=== PATIENT | female | born 1990 | race Caucasian/White ===

== ENCOUNTER 2017-07-19 21:02 | Emergency (ER) | payer OTHER ==
[~2017-07-19] VITALS: Ht 160 cm; Wt 113.0 kg
[~2017-07-19 21:02] MED LIST: AMIT150T PO; ASPI325T4 PO; BUPR150T5 PO; DESV100T8 PO; LISD70CA PO; LURA1TAB2 PO; METR-163 PO; NORG1TAB23 PO; OMEP40CA41 PO; ONDA4TAB10 SL; PRAZ2CAP2 PO; VLT500 PO; VNTHFA/IN INH; ZYP10 PO
[2017-07-19 21:12] VITALS: TEMP 36.8; Ht 160 cm; Wt 113.0 kg
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
[2017-07-19] MEDS ORDERED: FLUC150T PO (22:38)
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
[2017-07-19 22:51] VITALS: BP 154/87; PULSE 82; O2SAT 98
== END 2017-07-19 22:52 | disposition home or self-care (01) ==
LOC: C.EDB 21:03 → C.EDD 22:52
DX: M54.2 Cervicalgia (principal); M79.621 Pain in right upper arm; M54.5 Low back pain; V49.59XA Passenger injured in collision with other motor vehicles in traffic accident, initial encounter; A04.72 Enterocolitis due to Clostridium difficile, not specified as recurrent; J45.909 Unspecified asthma, uncomplicated; K21.9 Gastro-esophageal reflux disease without esophagitis; Z79.82 Long term (current) use of aspirin; Z79.3 Long term (current) use of hormonal contraceptives; Z87.442 Personal history of urinary calculi; Z90.49 Acquired absence of other specified parts of digestive tract; Z83.3 Family history of diabetes mellitus; Z82.49 Family history of ischemic heart disease and other diseases of the circulatory system; Z80.9 Family history of malignant neoplasm, unspecified; Z83.79 Family history of other diseases of the digestive system; Z84.1 Family history of disorders of kidney and ureter

== ENCOUNTER 2017-09-22 19:14 | Emergency (ER) | payer OTHER ==
[~2017-09-22] VITALS: Ht 160 cm; Wt 114.2 kg
[2017-09-22 19:23] VITALS: TEMP 36.8; Ht 160 cm; Wt 114.2 kg
[2017-09-22] MEDS ORDERED: SODIUM CHLORIDE 0.9% 500ML 500 ML IV STA (21:25)
[2017-09-22 21:32] LABS: BASO % 0.4 %; BASO ABS # 0.03 K/uL (0-0.2); EOS % 2.9 %; EOS ABS # 0.25 K/uL (0-0.5); HEMATOCRIT 38.9 % (37-47); HEMOGLOBIN 12.7 g/dL (12.0-16.0); IG# 0.02 K/uL (0.00-0.02); LYMPH % 35.1 %; LYMPH ABS # 2.99 K/uL (1.2-3.4); MEAN CELL VOLUME 84.7 fL (80-100); MEAN CORPUSCULAR HEMOGLOBIN 27.7 pg (25-34); MEAN CORPUSCULAR HGB CONC 32.6 g/dl (32-36); MEAN PLATELET VOLUME 8.7 fL (7.4-10.4); MONO % 8.7 %; MONO ABS # 0.74 K/uL (0.11-0.59); NEUT % 52.7 %; NEUT ABS # 4.48 K/uL (1.4-6.5); PLATELET COUNT 366 K/uL (130-400); RED CELL DISTRIBUTION WIDTH CV 13.2 % (11.5-14.5); RED CELL DISTRIBUTION WIDTH SD 40.3 fL (36.4-46.3); WHITE BLOOD COUNT 8.51 K/uL (4.8-10.8)
[2017-09-22 21:48] LABS: CALCIUM 8.6 mg/dl (8.5-10.1); CREATININE 0.87 mg/dl (0.60-1.20); POTASSIUM 3.9 mmol/L (3.5-5.1)
[2017-09-22 21:51] LABS: TOTAL PROTEIN 7.4 gm/dl (6.4-8.2)
[2017-09-22] MEDS ORDERED: KETOROLAC TROMETHAMINE 30 MG/ML VIAL IV STA (22:16)
[2017-09-23 00:33] VITALS: BP 136/84; PULSE 98; O2SAT 98
--- NOTE | 2017-09-23 03:05 | EMERGENCY ROOM VISIT NOTE ---
History Report prepared by Loyd: J Luis Siegel Under the Supervision of: Dr. Brandon Ibrahim D.O. First contact with patient: 21:24 Chief Complaint: ABDOMINAL PAIN Stated Complaint: STOMACH PAIN, RIGHT SIDE BACK PAIN History of Present Illness The patient is a 26 year old female who presents to the Emergency Room with complaints of worsening diarrhea that started 3 days ago. She complains of abdominal pain and right back pain. She denies nausea and vomiting. She states that she got C. Diff at the end of June 2017 from her room mate and states that the consistency and color of her stool is similar but does not smell as bad. Source of History: patient Onset: 3 days ago Position: abdomen Timing: constant Associated Symptoms: + abdominal pain, + back pain (right ), + diarrhea, No nausea, No vomiting Review of Systems See HPI for pertinent positives & negatives. A total of 10 systems reviewed and were otherwise negative. Past Medical & Surgical Medical Problems: (1) Asthma (2) GERD (gastroesophageal reflux disease) (3) Kidney stone Surgical Problems: (1) S/P ACL repair (2) S/P cholecystectomy Family History Diabetes mellitus FH: HTN (hypertension) FH: cancer FH: gallbladder disease FH: lung disease Kidney stones No significant family history Social History Smoking Status: Never Smoker Alcohol Use: occasionally Housing Status: lives with friends Occupation Status: [employer] student Current/Historical Medications Scheduled Amitriptyline Hcl (Amitriptyline Hcl), 75-150 MG PO DAILY Bupropion Hcl (Bupropion Hcl Xl), 150 MG PO DAILY Desvenlafaxine Succinate (Desvenlafaxine ER), 100 MG PO QAM Lisdexamfetamine Dimesylate (Vyvanse), 70 MG PO QAM Lurasidone Hcl (Latuda), 60 MG PO QPM Norgestimate-Ethinyl Estradiol (Tri-Estarylla), 1 TAB PO UD Omeprazole (Prilosec), 40 MG PO DAILY Prazosin Hcl (Prazosin), 2 MG PO HS Scheduled PRN Albuterol Hfa (Ventolin Hfa), 2 PUFFS INH Q6H PRN for SOB/Wheezing Valacyclovir HCl (Valacyclovir HCl), 500 MG PO TID PRN for Recurrent Episode Allergies Coded Allergies: No Known Allergies (Unverified , 09/22/17) Physical Exam Vital Signs Date Time Temp Pulse Resp B/P (MAP) Pulse Ox O2 Delivery O2 Flow Rate FiO2 09/23/17 00:33 98 20 136/84 98 Room Air 09/22/17 23:11 99 20 128/77 99 Room Air 09/22/17 21:34 84 20 135/100 99 Room Air 09/22/17 19:23 36.8 98 18 129/88 97 Room Air Physical Exam CONSTITUTIONAL/VITAL SIGNS: Reviewed / noted above. GENERAL: Non-toxic in appearance. INTEGUMENTARY: Warm, dry, and [place]. HEAD: Normocephalic. EYES: without scleral icterus or trauma. ENT/OROPHARYNX: clear and moist. LYMPHADENOPATHY/NECK: Is supple without lymphadenopathy or meningismus. RESPIRATORY: Lungs clear and equal. CARDIOVASCULAR: Regular rate and rhythm. GI/ABDOMEN: Soft and nontender. No organomegaly or pulsatile mass. No rebound or guarding. Normal bowel sounds. EXTREMITIES: Warm and well perfused. BACK: No CVA tenderness. NEUROLOGICAL: Intact without focal deficits. PSYCHIATRIC: normal affect. MUSCULOSKELETAL: Normally developed with good muscle tone. Medical Decision & Procedures Laboratory Results 09/22/17 21:15 Red Blood Count 4.59, Mean Corpuscular Volume 84.7, Mean Corpuscular Hemoglobin 27.7, Mean Corpuscular Hemoglobin Concent 32.6, Mean Platelet Volume 8.7, Neutrophils (%) (Auto) 52.7, Lymphocytes (%) (Auto) 35.1, Monocytes (%) (Auto) 8.7, Eosinophils (%) (Auto) 2.9, Basophils (%) (Auto) 0.4, Neutrophils # (Auto) 4.48, Lymphocytes # (Auto) 2.99, Monocytes # (Auto) 0.74, Eosinophils # (Auto) 0.25, Basophils # (Auto) 0.03 09/22/17 21:15 Test 09/22/17 21:15 09/22/17 22:10 White Blood Count 8.51 K/uL (4.8-10.8) Red Blood Count 4.59 M/uL (4.2-5.4) Hemoglobin 12.7 g/dL (12.0-16.0) Hematocrit 38.9 % (37-47) Mean Corpuscular Volume 84.7 fL (80-100) Mean Corpuscular Hemoglobin 27.7 pg (25-34) Mean Corpuscular Hemoglobin Concent 32.6 g/dl (32-36) Platelet Count 366 K/uL (130-400) Mean Platelet Volume 8.7 fL (7.4-10.4) Neutrophils (%) (Auto) 52.7 % Lymphocytes (%) (Auto) 35.1 % Monocytes (%) (Auto) 8.7 % Eosinophils (%) (Auto) 2.9 % Basophils (%) (Auto) 0.4 % Neutrophils # (Auto) 4.48 K/uL (1.4-6.5) Lymphocytes # (Auto) 2.99 K/uL (1.2-3.4) Monocytes # (Auto) 0.74 K/uL (0.11-0.59) Eosinophils # (Auto) 0.25 K/uL (0-0.5) Basophils # (Auto) 0.03 K/uL (0-0.2) RDW Standard Deviation 40.3 fL (36.4-46.3) RDW Coefficient of Variation 13.2 % (11.5-14.5) Immature Granulocyte % (Auto) 0.2 % Immature Granulocyte # (Auto) 0.02 K/uL (0.00-0.02) Anion Gap 9.0 mmol/L (3-11) Est Creatinine Clear Calc Drug Dose 121.4 ml/min Estimated GFR () 108.1 Estimated GFR (Non- 93.2 BUN/Creatinine Ratio 13.8 (10-20) Calcium Level 8.6 mg/dl (8.5-10.1) Total Bilirubin 0.2 mg/dl (0.2-1) Aspartate Amino Transf (AST/SGOT) 15 U/L (15-37) Alanine Aminotransferase (ALT/SGPT) 30 U/L (12-78) Alkaline Phosphatase 36 U/L (45-117) Total Protein 7.4 gm/dl (6.4-8.2) Albumin 3.0 gm/dl (3.4-5.0) Globulin 4.4 gm/dl (2.5-4.0) Albumin/Globulin Ratio 0.7 (0.9-2) Lipase 92 U/L (73-393) Urine Color DK YELLOW Urine Appearance CLOUDY (CLEAR) Urine pH 6.0 (4.5-7.5) Urine Specific [place] 1.027 (1.000-1.030) Urine Protein TRACE (NEG) Urine Glucose (UA) NEG (NEG) Urine Ketones TRACE (NEG) Urine Occult Blood 3+ (NEG) Urine Nitrite NEG (NEG) Urine Bilirubin NEG (NEG) Urine Urobilinogen NEG (NEG) Urine Leukocyte Esterase TRACE (NEG) Urine WBC (Auto) 1-5 /hpf (0-5) Urine RBC (Auto) >30 /hpf (0-4) Urine Hyaline Casts (Auto) 1-5 /lpf (0-5) Urine Epithelial Cells (Auto) >30 /lpf (0-5) Urine Bacteria (Auto) NEG (NEG) Urine Test NEG (NEG) Date/Time Source Procedure Growth Status 09/22/17 22:40 Stool C.difficile Toxin B Gene (PCR) - Final No C. difficile toxin B gene detected Complete Laboratory results as stated above per my review. Medications Administered Medications (Trade) Dose Ordered Sig/Perry Route Start Time Stop Time Status Last Admin Dose Admin Sodium Chloride 500 ml @ 999 mls/hr Q31M STAT IV 09/22/17 21:25 09/22/17 21:55 DC 09/22/17 21:25 999 MLS/HR Ketorolac Tromethamine (Toradol Inj) 30 mg NOW STAT IV 09/22/17 22:16 09/22/17 22:17 DC 09/22/17 22:26 30 MG ED Course 4: Previous medical records were reviewed. The patient was evaluated in room C12B. A complete history and physical examination was performed. 5: Sodium Chloride 500 ml @ 999 mls/hr IV. 6: Toradol Inj 30 mg IV. 0145: On reevaluation, the patient is doing well. I discussed the results and findings with the patient. She verbalized agreement of the treatment plan. Patient was discharged home. Medical Decision Differential considered: pancreatitis, hepatitis, or acute cholecystitis, AAA, UTI, pyelonephritis, kidney stones, appendicitis, diverticulitis, shingles, bowel obstruction mesenteric ischemia, intussusception,hernia, ovarian torsion, ruptured ovarian cyst,ectopic , , and C.Diff. This is a 26-year-old female who presents to the ED with a chief complaint of diarrhea with a history of C. difficile. She also reports some abdominal discomfort and some flank pain. The patient's exam and vital signs are noted above. Her vital signs are stable. She is afebrile. Normal exam. CBC and complete metabolic panel were unremarkable. Urine revealed 3+ blood. test was negative. C. difficile test was negative. The patient was reassessed. She was treated with IV Toradol. On reevaluation, she is more comfortable. She is feeling better. She is felt to be stable for discharge. Medication Reconcilliation Current Medication List: was personally reviewed by me Blood Pressure Screening Patient's blood pressure: Normal blood pressure Blood pressure disposition: Did not require urgent referral Impression Primary Impression: Diarrhea Scribe Attestation The scribe's documentation has been prepared under my direction and personally reviewed by me in its entirety. I confirm that the note above accurately reflects all work, treatment, procedures, and medical decision making performed by me. Departure Information Dispostion Home / Self-Care Referrals Johnna Hancock M.D. (PCP) Patient Instructions My [facility]
== END 2017-09-23 00:40 | disposition home or self-care (01) ==
LOC: C.EDB 19:17 → C.EDC 09-23 00:40
DX: R19.7 Diarrhea, unspecified (principal); K21.9 Gastro-esophageal reflux disease without esophagitis; J45.909 Unspecified asthma, uncomplicated; Z79.3 Long term (current) use of hormonal contraceptives

== ENCOUNTER 2018-03-16 11:18 | Emergency (ER) | payer OTHER ==
[~2018-03-16] VITALS: Ht 160 cm; Wt 113.4 kg
[~2018-03-16 11:18] MED LIST changes: -AMIT150T PO; +AMT50 PO; -ASPI325T4 PO; -BUPR150T5 PO; +BUSP15TA70 PO; -METR-163 PO; +OXYC-737 PO; -ZYP10 PO
[2018-03-16 11:22] VITALS: TEMP 36.8; Ht 160 cm; Wt 113.4 kg
[2018-03-16] MEDS ORDERED: SODIUM CHLORIDE 0.9% 1000ML 1,000 ML IV STA (11:23)
[2018-03-16] MEDS ORDERED: ONDANSETRON INJ 2 MG/ML 2 ML VIAL IV STA ×2 (11:23→15:06)
[2018-03-16] MEDS ORDERED: MoRPHine SULFATE 4 MG/ML 1 ML CARP\\VIAL IV STA (11:23)
[2018-03-16] MEDS ORDERED: CLON0.1T12 PO (12:09)
[2018-03-16 12:31] LABS: BASO % 0.2 %; EOS % 1.5 %; HEMATOCRIT 38.7 % (37-47); HEMOGLOBIN 12.6 g/dL (12.0-16.0); MEAN CELL VOLUME 83.4 fL (80-100); MEAN CORPUSCULAR HEMOGLOBIN 27.2 pg (25-34); MEAN CORPUSCULAR HGB CONC 32.6 g/dl (32-36); MEAN PLATELET VOLUME 8.8 fL (7.4-10.4); MONO % 10.1 %; NEUT % 67.1 %; PLATELET COUNT 301 K/uL (130-400); RED CELL DISTRIBUTION WIDTH CV 13.5 % (11.5-14.5); RED CELL DISTRIBUTION WIDTH SD 41.2 fL (36.4-46.3); WHITE BLOOD COUNT 8.19 K/uL (4.8-10.8)
[2018-03-16 12:32] LABS: BASO ABS # 0.02 K/uL (0-0.2); EOS ABS # 0.12 K/uL (0-0.5); IG# 0.01 K/uL (0.00-0.02); LYMPH ABS # 1.72 K/uL (1.2-3.4); MONO ABS # 0.83 K/uL (0.11-0.59); NEUT ABS # 5.49 K/uL (1.4-6.5)
[2018-03-16 12:52] LABS: ALBUMIN 3.1 gm/dl (3.4-5.0); CALCIUM 8.3 mg/dl (8.5-10.1); CREATININE 1.27 mg/dl (0.60-1.20); POTASSIUM 4.1 mmol/L (3.5-5.1); TOTAL PROTEIN 7.4 gm/dl (6.4-8.2)
--- NOTE | 2018-03-16 12:53 | DIAGNOSTIC IMAGING REPORT ---
KUB CLINICAL HISTORY: EVALUATE FOR OBSTRUCTION/STONE pain. Nephrocalcinosis. COMPARISON STUDY: 03/04/2018 FINDINGS: The soft tissues, psoas shadows, renal outlines and intestinal gas pattern appear normal. There is no evidence for bowel obstruction. No abnormal abdominal calcifications are seen. IMPRESSION: Normal study. The above report was generated using voice recognition software. It may contain grammatical, syntax or spelling errors. Electronically signed by: Jensen Jackson M.D. 03/16/2018 12:51 PM Dictated Date/Time: 03/16/2018 12:49 PM
--- NOTE | 2018-03-16 13:36 | DIAGNOSTIC IMAGING REPORT ---
(LEAH/BLAD)RETROPERITON COMP HISTORY: Pain R renal colic COMPARISON: None. FINDINGS: Right kidney: Maximum dimension 10 cm. Mild right renal hydronephrosis. Normal corticomedullary differentiation and cortical thickness. Left kidney: Maximum dimension 10.4 cm. No evidence for hydronephrosis. Normal corticomedullary differentiation and cortical thickness. Bladder: No bladder wall thickening. The bilateral ureteral jets were identified. IMPRESSION: Mild right renal hydronephrosis. Otherwise negative study. The above report was generated using voice recognition software. It may contain grammatical, syntax or spelling errors. Electronically signed by: Jensen Jackson M.D. 03/16/2018 1:34 PM Dictated Date/Time: 03/16/2018 1:32 PM
[2018-03-16] MEDS ORDERED: HYDROmorphone INJ 0.5 MG/0.5 ML SYR IV STA ×2 (13:39→15:06)
[2018-03-16] MEDS ORDERED: OXYC-90 PO (15:05)
[2018-03-16 15:19] VITALS: BP 145/95; PULSE 91; O2SAT 99
--- NOTE | 2018-03-16 16:40 | EMERGENCY ROOM VISIT NOTE ---
History First contact with patient: 11:22 Chief Complaint: URINARY SYMPTOMS Stated Complaint: RIGHT BACK PAIN, PAINFUL URINATION Nursing Triage Summary: pt reports she has appt with urology on . was seen here on the for kidney stone has painful urination , feels nauseated and gagging. no vomiting. called pcp told to come to ed History of Present Illness The patient is a 27 year old female who presents to the Emergency Room with complaints of recurrent right flank and back pain. The patient reports that she has been dealing with pain secondary to a right-sided ureteral stone that was diagnosed in our emergency department 12 days ago. The patient reports that she does have a prior history of kidney stones, with her last passed stone in approximately 2011. The patient reports that she actually did not have any pain this past Friday or Friday. She started to redevelop pain again on Friday. She reports nausea without vomiting. She has not noticed any blood in her urine or difficulty with urination. She denies fevers or chills, and rates her discomfort a 10 out of 10 on my exam. The patient reports that she did call the [facility] urology office and has an appointment scheduled for next month as a could not get her in sooner. The patient has not been seen at their office in the past. Review of Systems HEENT: Denies dizziness, visual problems, hearing loss, tinnitus. Denies difficulty swallowing or oral lesions. PULMONARY: Denies cough, shortness of breath, sputum production or hemoptysis. CARDIOVASCULAR: Denies chest pain, palpitations, dyspnea on exertion, orthopnea or peripheral edema. GASTROINTESTINAL: Denies diarrhea, constipation or anterior abdominal pain. GENITOURINARY: The patient reports mild dysuria and increased frequency. Denies urgency or nocturia. NEUROLOGIC: Denies history of epilepsy, CVA, TIA or chronic headaches. MUSCULOSKELETAL: Denies history of joint tenderness/swelling. SKIN: Denies rashes or lesions. PSYCHIATRIC: Denies history of depression or mental illness. ENDOCRINE: Denies history of diabetes or thyroid disorders. Past Medical/Surgical History Medical Problems: (1) Asthma (2) GERD (gastroesophageal reflux disease) (3) Kidney stone Surgical Problems: (1) S/P ACL repair (2) S/P cholecystectomy Family History Diabetes mellitus FH: HTN (hypertension) FH: cancer FH: gallbladder disease FH: lung disease Kidney stones No significant family history Social History Smoking Status: Never Smoker Alcohol Use: occasionally Housing Status: lives with friends Occupation Status: [employer] student Current/Historical Medications Scheduled Amitriptyline Hcl (Elavil), 100 MG PO DAILY Buspirone Hcl (Buspar), 15 MG PO DIRECTED Clonidine Hcl (Catapres), 0.1 MG PO HS Desvenlafaxine Succinate (Desvenlafaxine ER), 100 MG PO QAM Lisdexamfetamine Dimesylate (Vyvanse), 70 MG PO QAM Lurasidone Hcl (Latuda), 60 MG PO QPM Norgestimate-Ethinyl Estradiol (Tri-Estarylla), 1 TAB PO UD Omeprazole (Prilosec), 40 MG PO DAILY Ondasetron Odt (Zofran Odt), 4 MG SL Q6H Scheduled PRN Albuterol Hfa (Ventolin Hfa), 2 PUFFS INH Q6H PRN for SOB/Wheezing Oxycodone Immediate Rel Tab (Roxicodone Ir), 1-2 TAB PO Q4H PRN for Severe Pain Oxycodone Ir (Roxicodone Ir), 1 TAB PO Q4H PRN for Pain Valacyclovir HCl (Valacyclovir HCl), 500 MG PO TID PRN for Recurrent Episode Physical Exam Vital Signs Date Time Temp Pulse Resp B/P (MAP) Pulse Ox O2 Delivery O2 Flow Rate FiO2 03/16/18 15:19 91 16 145/95 99 Room Air 03/16/18 11:22 36.8 93 18 147/100 100 Room Air Physical Exam CONSTITUTIONAL: Healthy and well nourished. Alert and oriented X 3 with positive affect. Patient appears in moderate discomfort from pain. HEENT: Normocephalic, atraumatic. Pupils equal, round and reactive. No scleral icterus or conjunctival injection/pallor. NECK: Full active range of motion without discomfort. RESPIRATORY: Clear to auscultation bilaterally with no wheezing, crackles, rhonchi or stridor. CARDIOVASCULAR: Regular rate and rhythm with no murmurs, rubs or gallops. GASTROINTESTINAL: Bowel sounds present in all quadrants. Abdomen is soft and nontender to palpation. Negative McBurney's point tenderness. Negative Abel sign. Negative CVA tenderness. No abdominal rigidity, guarding or rebound. MUSCULOSKELETAL: Full range of motion of all joints without discomfort. No tenderness to palpation through the thoracic or lumbar paraspinous muscles or SI joints. INTEGUMENTARY: No rash or other significant dermatologic conditions noted. HEMATOLOGIC: No ecchymosis or petechiae. NEUROLOGIC: No focal neurologic deficits noted. Medical Decision & Procedures ER Provider Diagnostic Interpretation: My interpretation of the KUB does not show any obvious ureteral calculi, free air or obstructive findings. Radiologist report is as follows: KUB CLINICAL HISTORY: EVALUATE FOR OBSTRUCTION/STONE pain. Nephrocalcinosis. COMPARISON STUDY: 03/04/2018 FINDINGS: The soft tissues, psoas shadows, renal outlines and intestinal gas pattern appear normal. There is no evidence for bowel obstruction. No abnormal abdominal calcifications are seen. IMPRESSION: Normal study. Retroperitoneal ultrasound shows a mild hydronephrosis without obvious bladder wall thickening. Bilateral ureteral jets are identified. Radiologist report is as follows: (LEAH/BLAD)RETROPERITON COMP HISTORY: Pain R renal colic COMPARISON: None. FINDINGS: Right kidney: Maximum dimension 10 cm. Mild right renal hydronephrosis. Normal corticomedullary differentiation and cortical thickness. Left kidney: Maximum dimension 10.4 cm. No evidence for hydronephrosis. Normal corticomedullary differentiation and cortical thickness. Bladder: No bladder wall thickening. The bilateral ureteral jets were identified. IMPRESSION: Mild right renal hydronephrosis. Otherwise negative study. Laboratory Results 03/16/18 12:00 Red Blood Count 4.64, Mean Corpuscular Volume 83.4, Mean Corpuscular Hemoglobin 27.2, Mean Corpuscular Hemoglobin Concent 32.6, Mean Platelet Volume 8.8, Neutrophils (%) (Auto) 67.1, Lymphocytes (%) (Auto) 21.0, Monocytes (%) (Auto) 10.1, Eosinophils (%) (Auto) 1.5, Basophils (%) (Auto) 0.2, Neutrophils # (Auto ) 5.49, Lymphocytes # (Auto) 1.72, Monocytes # (Auto) 0.83, Eosinophils # (Auto ) 0.12, Basophils # (Auto) 0.02 03/16/18 12:00 Test 03/16/18 11:54 03/16/18 12:00 Urine Color YELLOW Urine Appearance CLEAR (CLEAR) Urine pH 5.5 (4.5-7.5) Urine Specific [place] 1.029 (1.000-1.030) Urine Protein NEG (NEG) Urine Glucose (UA) NEG (NEG) Urine Ketones NEG (NEG) Urine Occult Blood NEG (NEG) Urine Nitrite NEG (NEG) Urine Bilirubin NEG (NEG) Urine Urobilinogen NEG (NEG) Urine Leukocyte Esterase NEG (NEG) Urine Test NEG (NEG) White Blood Count 8.19 K/uL (4.8-10.8) Red Blood Count 4.64 M/uL (4.2-5.4) Hemoglobin 12.6 g/dL (12.0-16.0) Hematocrit 38.7 % (37-47) Mean Corpuscular Volume 83.4 fL (80-100) Mean Corpuscular Hemoglobin 27.2 pg (25-34) Mean Corpuscular Hemoglobin Concent 32.6 g/dl (32-36) Platelet Count 301 K/uL (130-400) Mean Platelet Volume 8.8 fL (7.4-10.4) Neutrophils (%) (Auto) 67.1 % Lymphocytes (%) (Auto) 21.0 % Monocytes (%) (Auto) 10.1 % Eosinophils (%) (Auto) 1.5 % Basophils (%) (Auto) 0.2 % Neutrophils # (Auto) 5.49 K/uL (1.4-6.5) Lymphocytes # (Auto) 1.72 K/uL (1.2-3.4) Monocytes # (Auto) 0.83 K/uL (0.11-0.59) Eosinophils # (Auto) 0.12 K/uL (0-0.5) Basophils # (Auto) 0.02 K/uL (0-0.2) RDW Standard Deviation 41.2 fL (36.4-46.3) RDW Coefficient of Variation 13.5 % (11.5-14.5) Immature Granulocyte % (Auto) 0.1 % Immature Granulocyte # (Auto) 0.01 K/uL (0.00-0.02) Anion Gap 5.0 mmol/L (3-11) Est Creatinine Clear Calc Drug Dose 82.1 ml/min Estimated GFR () 67.9 Estimated GFR (Non- 58.6 BUN/Creatinine Ratio 12.0 (10-20) Calcium Level 8.3 mg/dl (8.5-10.1) Total Bilirubin 0.3 mg/dl (0.2-1) Aspartate Amino Transf (AST/SGOT) 25 U/L (15-37) Alanine Aminotransferase (ALT/SGPT) 50 U/L (12-78) Alkaline Phosphatase 30 U/L (45-117) Total Protein 7.4 gm/dl (6.4-8.2) Albumin 3.1 gm/dl (3.4-5.0) Globulin 4.3 gm/dl (2.5-4.0) Albumin/Globulin Ratio 0.7 (0.9-2) Lipase 63 U/L (73-393) Medications Administered Medications (Trade) Dose Ordered Sig/Perry Route Start Time Stop Time Status Last Admin Dose Admin Sodium Chloride 1,000 ml @ 999 mls/hr Q1H1M STAT IV 03/16/18 11:23 03/16/18 12:23 DC 03/16/18 11:46 999 MLS/HR Morphine Sulfate (MoRPHine SULFATE INJ) 4 mg NOW STAT IV 03/16/18 11:23 03/16/18 11:25 DC 03/16/18 11:46 4 MG Ondansetron HCl (Zofran Inj) 4 mg NOW STAT IV 03/16/18 11:23 03/16/18 11:25 DC 03/16/18 11:46 4 MG Hydromorphone HCl (Dilaudid Inj) 0.5 mg NOW STAT IV 03/16/18 13:39 03/16/18 13:40 DC 03/16/18 13:39 0.5 MG Hydromorphone HCl (Dilaudid Inj) 0.5 mg NOW STAT IV 03/16/18 15:06 03/16/18 15:07 DC 03/16/18 15:06 0.5 MG Ondansetron HCl (Zofran Inj) 4 mg NOW STAT IV 03/16/18 15:06 03/16/18 15:07 DC 03/16/18 15:06 4 MG Procedure 1. IV hydration: The patient was administered a normal saline 1 L bolus 2. IV mag 30 mg and Zofran 4 mg IVP. The patient did require an additional dose of Dilaudid 0.5 mg IVP 2, as well as another dose of Zofran 4 mg IVP prior to discharge. ED Course Patient history and physical exam were performed. Nurse's notes were reviewed. Vital signs were reviewed, showing an elevated blood pressure 147/100. Patient appears in moderate severe discomfort. I also reviewed documentation from the patient's last 2 ED visits, showing a 2 mm right distal ureteral calculus, approximately 1.5 cm above the UVJ. Her last laboratory results were also normal with a normal creatinine. IV access was established, and labs were drawn. The patient was hydrated with normal saline, and administered IV analgesics and an discussed in the previous Procedure section. Review of labs does show a bump to creatinine at 1.27, otherwise remaining labs, including CBC, LFTs, lipase and urinalysis are normal. KUB was unable to visualize the stone, and ultrasound shows a mild persistent hydronephrosis. The case was also discussed with Dr. Bains, ED attending physician, who agrees with urology consultation. I initially contacted and spoke with Dr. 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 I did explain that the patient already has an established appointment with her office. At this point, I then discussed the case further with DAVIN Malin who was able to establish an appointment for the patient tomorrow at [address] Noe. The patient was instructed to return to the emergency department for any uncontrollable pain, vomiting or developing fever. Otherwise she will keep her appointment tomorrow to discuss further management. The patient reports that she still has enough Zofran at home for nausea. She was provided an additional prescription for OxyIR 5 mg as needed for breakthrough pain. No drinking alcohol or driving while taking OxyIR. The patient was happy with plan of care, voiced understanding of all discharge instructions, and denied any pain at the time of discharge. Medical Decision Patient presents to the emergency department with complaint of persistent right flank pain secondary to a right ureteral calculus that has been previously visualized on CT scan. The patient does have a slight bump in her creatinine today, otherwise does not show any evidence for UTI. She is also afebrile without leukocytosis. I was able to control the patient's pain while in the emergency department. She was instructed to return to the emergency department , however, for any uncontrollable pain, developing fever or persistent vomiting. She does not appear to have infection at this time. I do not suspect appendicitis, bowel obstruction or surgical abdomen. The patient is status post cholecystectomy. [facility] Drug Monitoring Program Search Results: patient reviewed within database, no issues identified Medication Reconcilliation Current Medication List: was personally reviewed by me Blood Pressure Screening Patient's blood pressure: Elevated blood pressure Blood pressure disposition: Elevated BP felt to be situational Impression Primary Impression: Renal colic on right side Additional Impression: Right ureteral calculus Departure Information Dispostion Home / Self-Care Condition GOOD Prescriptions Oxycodone Ir (Roxicodone Ir) 5 Mg Tab 1 TAB PO Q4H Y for Pain, #18 TAB For Initial Treatment Prov: Magen Calvin PA 03/16/18 Referrals Johnna Hancock M.D. (PCP) Danis Noe II., DO Friday03/17/18 at 2:00 p.m. Forms HOME CARE DOCUMENTATION FORM, IMPORTANT VISIT INFORMATION Patient Instructions My [facility] Additional Instructions You have an appointment scheduled on 03/17/18 at [address] Noe. Continue with your oxycodone as needed for pain. Zofran as needed for nausea. Return to the emergency department for any uncontrollable pain, persistent vomiting or developing fever. Problem Qualifiers
[2018-03-18] MEDS ORDERED: OXYC-90 PO (11:43)
[2018-03-18] MEDS ORDERED: ONDA4TAB46 SL (11:43)
[2018-03-18] MEDS ORDERED: BUPR-79 PO (11:43)
[2018-03-23] MEDS ORDERED: TAMS0.4C38 PO (07:53)
[2018-03-23] MEDS ORDERED: PHEN-775 PO (07:53)
[2018-03-23] MEDS ORDERED: CIPR-255 PO (07:53)
[2018-03-23] MEDS ORDERED: OXYC7.5T65 PO (07:53)
== END 2018-03-16 15:44 | disposition home or self-care (01) ==
LOC: C.EDB 11:19 → C.EDC 15:44
DX: N23 Unspecified renal colic (principal); N20.1 Calculus of ureter; R11.0 Nausea; Z90.49 Acquired absence of other specified parts of digestive tract; J45.909 Unspecified asthma, uncomplicated; K21.9 Gastro-esophageal reflux disease without esophagitis; Z79.899 Other long term (current) drug therapy; Z79.3 Long term (current) use of hormonal contraceptives

== ENCOUNTER 2018-03-23 05:26 | Day surgery (SDC) | payer OTHER ==
[2018-03-18 11:44] VITALS: BMI 45.0
[~2018-03-23] VITALS: Ht 160 cm; Wt 115.9 kg
[~2018-03-23 05:26] MED LIST changes: +BUPR-79 PO; +CLON0.1T12 PO; -ONDA4TAB10 SL; +ONDA4TAB46 SL; -OXYC-737 PO; +OXYC-90 PO; -PRAZ2CAP2 PO
[2018-03-23] MEDS ORDERED: LACTATED RINGER'S 1000ML 1,000 ML IV SCH (06:00)
[2018-03-23] MEDS ORDERED: CIPROFLOXACIN / D5W 400 MG IV SCH (06:00)
[2018-03-23 06:17] VITALS: BP 115/70; PULSE 92; TEMP 36.6; O2SAT 100; Ht 160 cm; Wt 115.9 kg
[2018-03-23] MEDS ORDERED: DEXAMETHASONE SOD INJ 4 MG/ML VIAL ONE (07:07)
[2018-03-23] MEDS ORDERED: FENTANYL CITRATE INJ 50 MCG/1 ML 2 ML VIAL ONE (07:07)
[2018-03-23] MEDS ORDERED: MIDAZOLAM HCL 1 MG/ML 2ML VIAL ONE (07:07)
[2018-03-23] MEDS ORDERED: LIDOCAINE HCL 2% 2 ML VIAL (20MG/ML) ONE (07:07)
[2018-03-23] MEDS ORDERED: ONDANSETRON INJ 2 MG/ML 2 ML VIAL ONE (07:07)
[2018-03-23] MEDS ORDERED: PROPOFOL IV EMULSION 10 MG/ML 20 ML VIAL ONE ×2 (07:07→08:06)
[2018-03-23] MEDS ORDERED: SCOPOLAMINE 1.5 MG TDSY TD ONE (07:14)
--- NOTE | 2018-03-23 07:41 | History & Physical Bridge Note ---
H&P Re-Evaluation Bridge Note: I have examined the patient, reviewed the History & Physical and in the interval since the performance of the History & Physical I have noted the following changes of clinical significance: No changes noted
[2018-03-23] MEDS ORDERED: TAMS0.4C38 PO (07:53)
[2018-03-23] MEDS ORDERED: CIPR-255 PO (07:53)
[2018-03-23] MEDS ORDERED: PHEN-775 PO (07:53)
[2018-03-23] MEDS ORDERED: OXYC7.5T65 PO (07:53)
--- NOTE | 2018-03-23 07:55 | Discharge Instructions ---
Discharge Instructions Date of Service Mar 23, 2018. Admission Reason for Admission: STONE Discharge Discharge Diagnosis / Problem: Stones Discharge Goals Goal(s): Decrease discomfort, Improve function Activity Recommendations Activity Limitations: resume your previous activity Lifting Limitations: gradually increase as tolerated Exercise/Sports Limitations: gradually increase as tolerated . Instructions / Follow-Up Instructions / Follow-Up May have blood in urine. May have pelvic discomfort. Call if any fevers or chills. Current Hospital Diet Patient's current hospital diet: Discharge Diet Recommended Diet: Regular Diet Procedures Procedures Performed: Cystoscopy and Right Urteroscopy Pending Studies Studies pending at discharge: no Medical Emergencies . Who to Call and When: Medical Emergencies: If at any time you feel your situation is an emergency, please call 911 immediately. . Non-Emergent Contact Non-Emergency issues call your: Primary Care Provider, Urologist Call Non-Emergent contact if: you have a fever, temperature is above 101, temperature is above 101.5, your pain is not controlled, your pain is worsening . . "Provider Documentation" section prepared by Danis Noe. .
[2018-03-23] MEDS ORDERED: FENTANYL CITRATE INJ 50 MCG/1 ML 2 ML VIAL IV PRN (08:00)
[2018-03-23] MEDS ORDERED: ONDANSETRON INJ 2 MG/ML 2 ML VIAL IV PRN (08:00)
[2018-03-23] MEDS ORDERED: ALBUTEROL 0.083% NEBU SOLN 3 ML VIAL INH PRN (08:00)
[2018-03-23] MEDS ORDERED: OXYCODONE/ACETAMINOPHEN 7.5-325 TAB PO PRN (08:00)
[2018-03-23] MEDS ORDERED: ATROPINE SULFATE 0.1 MG/ML 5ML SYR IV PRN (08:00)
[2018-03-23] MEDS ORDERED: CONRAY 60% 50 ML VIAL ONE (08:03)
[2018-03-23] MEDS ORDERED: Cysto-Conray II 17.2% 250ML BOTTLE ONE (08:06)
--- NOTE | 2018-03-23 08:34 | [facility] Operative Report ---
Operative Report Operative Date Mar 23, 2018. Pre-Operative Diagnosis Right Stone Post-Operative Diagnosis Same Procedure(s) Performed Cystoscopy, Right ureteroscopy, laser lithotripsy, stent, retrograde, and stone extraction. Surgeon Hasmukh Estimated Blood Loss Minimal Findings Small impacted within right ureter and small renal pelvis stone Specimens 1. Very small Stone fragment right renal pelvis Drains 5 Fr Multilength Anesthesia Type General Complication(s) none Disposition Recovery Room / PACU Indications Stone with severe colic and no passage. Risks and benefits discussed at length. Description of Procedure Patient was consented and brought back to the operating room. Patient was placed under anesthesia in the supine position and moved to the dorsal lithotomy position. Patient was prepped and draped in the regular sterile fashion. A time out was completed. A 30degree Cystoscope was placed into the bladder and the entire bladder was examined. The UO's were identified. The UO was cannulized with a catheter and a retrograde pyelogram was completed. A wire was then placed. This was followed by a second safety wire was placed. The flexible ureteroscope was taken into the ureter. The entire ureter and renal pelvis were examined. The distal ureteral stone was identified. It appeared to be impacted into the side wall of the ureter. A laser fiber was selected and the stones were pulverized to dust and small fragments. The ureter in this area was very irritated and easily bleeding. The scope was taken to the renal pelvis. Additional small stones were identified and destroyed with the laser on dusting settings. A small amount of remaining fragments were grasped and removed and sent for analysis. The entire area was once again examined. No residual large fragments or areas of concern were noted. The scope was slowly removed with the wire left in place. Contrast was placed through the scope for a pyelogram to assist in stent placement. Visualization of the pyelogram was poor, likely secondary to patient's habitus. The entire ureter was examined as the scope was slowly removed. No obstructions or other areas of concern were noted. The distal ureter still appeared irritated, but no further fragments were identified. With the wire in place, a 5 Fr Double J stent was placed. It was confirmed with fluoroscopy. With the stent in place, the bladder was emptied. The scope was removed. The patient was cleaned, aroused from anesthesia, and transferred to the pacu in stable condition having tolerated the procedure well with no complications. I was present and participated in all aspects of the procedure. A string tether had been left on the stent. The patient will be monitored in the PACU until transferred. I attest to the content of the Intraoperative Record and any orders documented therein. Any exceptions are noted below.
[2018-03-23 09:35] VITALS: BP 130/75; PULSE 87; TEMP 36.6; O2SAT 95
--- NOTE | 2018-03-23 10:04 | Anesthesiology Progress Note ---
Anesthesia Post Op Note Date & Time Mar 23, 2018 at 10:04 Vital Signs Pain Intensity: 0 Vital Signs Past 12 Hours Date Time Temp Pulse Resp B/P (MAP) Pulse Ox O2 Delivery O2 Flow Rate FiO2 03/23/18 09:30 36.4 85 22 119/76 97 Room Air 03/23/18 09:20 90 21 116/74 96 Room Air 03/23/18 09:10 98 25 144/94 100 Room Air 03/23/18 09:00 98 22 117/88 100 Oxymask 10 03/23/18 08:48 36. 100 20 121/92 98 Oxymask 10 03/23/18 06:17 36.6 92 18 115/70 (85) 100 Room Air Notes Mental Status: alert / awake / arousable, participated in evaluation Pt Amnestic to Procedure: Yes Nausea / Vomiting: adequately controlled Pain: adequately controlled Airway Patency, RR, SpO2: stable & adequate BP & HR: stable & adequate Hydration State: stable & adequate Anesthetic Complications: no major complications apparent
[2018-03-23 10:10] VITALS: BP_SYST 131; BP_SYST 31; BP_DIAS 38; PULSE 86; TEMP 36.6; O2SAT 100
--- NOTE | 2018-03-23 10:24 | DIAGNOSTIC IMAGING REPORT ---
RETROGRADE INCLUDES KUB CLINICAL HISTORY: RIGHT CYSTOSCOPY, LASER LITHO COMPARISON STUDY: CT of the abdomen and pelvis March 08, 2018 and KUB and renal ultrasound March 16, 2018. Fluoroscopy time: 103.2 seconds. FINDINGS: 4 fluoroscopic images from right retrograde exam were submitted for interpretation. These images demonstrate cannulation of the right ureter with placement of a right ureteral stent which appears appropriately positioned. Note is made of extraluminal contrast within the right perinephric space. This suggests forniceal rupture. IMPRESSION: 1. Fluoroscopic images from right retrograde exam with ureteral stent insertion. 2. Extraluminal contrast within the right perinephric space which suggests a forniceal rupture. This finding will be called to the ordering physician. Electronically signed by: Nj Weiss M.D. 03/23/2018 10:22 AM Dictated Date/Time: 03/23/2018 8:45 AM
[2018-03-23] MEDS ORDERED: NURSING VERBAL MED ORDER ONE (11:00)
[2018-03-23] MEDS ORDERED: HYDROCODONE/ACETAMIN 5/325MG TAB PO ONE (11:00)
[2018-03-23 11:05] VITALS: BP 129/77; PULSE 83; TEMP 36.8; O2SAT 97
== END 2018-03-23 12:14 | disposition home or self-care (01) ==
LOC: C.ACU 05:26
PROVIDERS: ATTEND Urology
DX: N20.1 Calculus of ureter (principal); N20.0 Calculus of kidney; Z90.49 Acquired absence of other specified parts of digestive tract

== ENCOUNTER 2018-03-26 22:32 | Observation (INO) | payer OTHER ==
[~2018-03-26] VITALS: Ht 160 cm; Wt 116.0 kg
[~2018-03-26 22:32] MED LIST changes: +CIPR-255 PO; +OXYC7.5T65 PO; +PHEN-775 PO; +TAMS0.4C38 PO
[2018-03-26] MEDS ORDERED: SODIUM CHLORIDE 0.9% 1000ML 1,000 ML IV STA (22:51)
[2018-03-26] MEDS ORDERED: KETOROLAC TROMETHAMINE 30 MG/ML VIAL IV STA (22:51)
[2018-03-26] MEDS ORDERED: METOCLOPRAMIDE HCL INJ 5 MG/ML 2 ML VIAL IV STA (22:51)
[2018-03-26] MEDS ORDERED: DiphenhydrAMINE HCL 50 MG/ML VIAL IV STA (22:51)
[2018-03-26 23:40] LABS: BASO % 0.3 %; BASO ABS # 0.03 K/uL (0-0.2); EOS % 1.8 %; EOS ABS # 0.21 K/uL (0-0.5); HEMATOCRIT 37.5 % (37-47); HEMOGLOBIN 12.6 g/dL (12.0-16.0); IG# 0.02 K/uL (0.00-0.02); LYMPH % 23.7 %; LYMPH ABS # 2.75 K/uL (1.2-3.4); MEAN CELL VOLUME 84.3 fL (80-100); MEAN CORPUSCULAR HEMOGLOBIN 28.3 pg (25-34); MEAN CORPUSCULAR HGB CONC 33.6 g/dl (32-36); MEAN PLATELET VOLUME 8.9 fL (7.4-10.4); MONO % 7.7 %; NEUT % 66.3 %; NEUT ABS # 7.71 K/uL (1.4-6.5); PLATELET COUNT 310 K/uL (130-400); RED CELL DISTRIBUTION WIDTH CV 13.3 % (11.5-14.5); WHITE BLOOD COUNT 11.62 K/uL (4.8-10.8)
[2018-03-26] MEDS ORDERED: LISD60CA PO (23:44)
[2018-03-26] MEDS ORDERED: DESV100T PO (23:45)
[2018-03-26] MEDS ORDERED: MoRPHine SULFATE 4 MG/ML 1 ML CARP\\VIAL IV STA (23:47)
[2018-03-26] MEDS ORDERED: OLAN10TA11 PO (23:55)
[2018-03-27 00:01] LABS: ALBUMIN 3.2 gm/dl (3.4-5.0); ALKALINE PHOSPHATASE 35 U/L (45-117); ALT/SGPT 37 U/L (12-78); AST/SGOT 18 U/L (15-37); BLOOD UREA NITROGEN 12 mg/dl (7-18); CALCIUM 8.3 mg/dl (8.5-10.1); CARBON DIOXIDE 24 mmol/L (21-32); CREATININE 1.32 mg/dl (0.60-1.20); GLUCOSE 94 mg/dl (70-99); LIPASE 57 U/L (73-393); POTASSIUM 3.6 mmol/L (3.5-5.1); SODIUM 137 mmol/L (136-145); TOTAL PROTEIN 7.8 gm/dl (6.4-8.2)
[2018-03-27] MEDS ORDERED: MoRPHine SULFATE 4 MG/ML 1 ML CARP\\VIAL IV STA (00:52)
[2018-03-27] MEDS ORDERED: POLYETHYLENE (MIRALAX) 17 GM PACK PO PRN (01:45)
[2018-03-27] MEDS ORDERED: MoRPHine SULFATE 4 MG/ML 1 ML CARP\\VIAL IV PRN (01:45)
[2018-03-27] MEDS ORDERED: ONDANSETRON INJ 2 MG/ML 2 ML VIAL IV PRN (01:45)
[2018-03-27] MEDS ORDERED: ALUMINUM/MAGNESIUM/SIMETH (MAALOX MAX) 30 ML UDC PO PRN (01:45)
[2018-03-27] MEDS ORDERED: LISD60CA PO (01:49)
[2018-03-27] MEDS ORDERED: AMT50 PO (01:49)
[2018-03-27] MEDS ORDERED: OLANZAPINE 10 MG TAB PO PRN (02:00)
[2018-03-27] MEDS ORDERED: ALBUTEROL HFA 8 GM INHALER INH PRN (02:00)
[2018-03-27] MEDS: SODIUM CHLORIDE 0.9% 1000ML 1,000 ML IV SCH ×2 (02:43→14:05)
[2018-03-27] MEDS ORDERED: CEFTRIAXONE SOD INJ 1 GM in DEXTROSE 5% ADD-VANTAGE 50ML 50 ML IV SCH (03:00)
[2018-03-27] MEDS ORDERED: MoRPHine SULFATE 2 MG/ML CARP IV STA (03:28)
[2018-03-27 04:07] VITALS: BP 128/79; PULSE 99; TEMP 37; O2SAT 94; Ht 160 cm; Wt 116.0 kg
--- NOTE | 2018-03-27 04:29 | EMERGENCY ROOM VISIT NOTE ---
History First contact with patient: 22:48 Chief Complaint: FLANK PAIN Stated Complaint: STENT REMOVED FROM KIDNEY STONE,BACK AND ABD PAIN History of Present Illness The patient is a 27 year old female who presents to the Emergency Room with complaints of severe right flank pain that radiates to her groin since 4:30 PM today after her stent was removed by Dr. Noe her urologist. Patient states she had lithotripsy on Friday by Dr. Noe. She believes that most of the stone was removed. Her stent was 2 mm. Pain is described as severe, 9 out of 10. Nothing makes it better or worse. Patient was of nausea and vomiting. Patient denies chest pain, dyspnea, fever, chills, dysuria. She states this feels worse than the original kidney stone. Review of Systems An 10 system review of systems was completed with positives and pertinent negatives listed in the HPI. Past Medical/Surgical History Medical Problems: (1) Asthma (2) GERD (gastroesophageal reflux disease) (3) Kidney stone Surgical Problems: (1) S/P ACL repair (2) S/P cholecystectomy Family History Diabetes mellitus FH: HTN (hypertension) FH: cancer FH: gallbladder disease FH: lung disease Kidney stones No significant family history Social History Smoking Status: Never Smoker Alcohol Use: occasionally Housing Status: lives with friends Occupation Status: [employer] student Current/Historical Medications Scheduled Amitriptyline Hcl (Elavil), 150 MG PO HS Bupropion (Wellbutrin Sr), 150 MG PO QAM Clonidine Hcl (Catapres), 0.1 MG PO HS Desvenlafaxine Succinate Er (Pristiq), 100 MG PO DAILY Lisdexamfetamine Dimesylate (Vyvanse), 70 MG PO DAILY Lurasidone Hcl (Latuda), 60 MG PO QPM Norgestimate-Ethinyl Estradiol (Tri-Estarylla), 1 TAB PO HS Omeprazole (Prilosec), 40 MG PO QPM Scheduled PRN Albuterol Hfa (Ventolin Hfa), 2 PUFFS INH Q6H PRN for SOB/Wheezing Olanzapine (Zyprexa), 10 MG PO DAILY PRN for MANIC EPISODES Valacyclovir HCl (Valacyclovir HCl), 500 MG PO TID PRN for Recurrent Episode Physical Exam Vital Signs Date Time Temp Pulse Resp B/P (MAP) Pulse Ox O2 Delivery O2 Flow Rate FiO2 8/10/18 01:04 99 16 143/85 99 Room Air 03/27/18 00:01 103 16 126/72 98 Room Air 03/26/18 22:38 37.3 103 18 139/89 99 Room Air Physical Exam VITALS: Vitals are noted on the nurse's note and reviewed by myself. Vital signs stable. GENERAL: White female who appears in pain, in no acute distress, nondiaphoretic , well-developed well-nourished. SKIN: The skin was without rashes, erythema, edema, or bruising. There is no tenting of the skin. Capillary reflex less than 2 seconds. HEAD: Normocephalic atraumatic. EARS: External auditory canals clear, tympanic membranes pearly espinal without erythema or effusion bilaterally. EYES: Pupils equal round and reactive to light and accommodation. Conjunctivae without injection, sclerae without icterus. Extraocular movements intact. NOSE: Patent, turbinates without inflammation or discharge. No sinus tenderness. MOUTH: Mucous membranes moist. Pharynx without erythema or exudate. Uvula midline. Airway patent. Tongue does not deviate. NECK: Supple without nuchal rigidity. No lymphadenopathy. No thyromegaly. Cervical spine is nontender. No JVD. HEART: Regular rate and rhythm without murmurs gallops or rubs. LUNGS: Clear to auscultation bilaterally without wheezes, rales or rhonchi. No retractions or accessory muscle use. ABDOMEN: Positive bowel sounds x 4. Normal tympanic percussion. Soft, nontender, without masses or organomegaly. Abel sign negative. No guarding or rebound tenderness. Right CVA tenderness MUSCULOSKELETAL: No muscle atrophy, erythema, or edema noted. NEURO: Patient was alert and oriented to person place and time. Normal sensation to light and sharp touch. No focal neurological deficits. Medical Decision & Procedures Laboratory Results 03/26/18 23:30 Red Blood Count 4.45, Mean Corpuscular Volume 84.3, Mean Corpuscular Hemoglobin 28.3, Mean Corpuscular Hemoglobin Concent 33.6, Mean Platelet Volume 8.9, Neutrophils (%) (Auto) 66.3, Lymphocytes (%) (Auto) 23.7, Monocytes (%) (Auto) 7.7, Eosinophils (%) (Auto) 1.8, Basophils (%) (Auto) 0.3, Neutrophils # (Auto) 7.71, Lymphocytes # (Auto) 2.75, Monocytes # (Auto) 0.90, Eosinophils # (Auto) 0.21, Basophils # (Auto) 0.03 03/26/18 23:30 Test 03/26/18 23:30 03/26/18 23:34 White Blood Count 11.62 K/uL (4.8-10.8) Red Blood Count 4.45 M/uL (4.2-5.4) Hemoglobin 12.6 g/dL (12.0-16.0) Hematocrit 37.5 % (37-47) Mean Corpuscular Volume 84.3 fL (80-100) Mean Corpuscular Hemoglobin 28.3 pg (25-34) Mean Corpuscular Hemoglobin Concent 33.6 g/dl (32-36) Platelet Count 310 K/uL (130-400) Mean Platelet Volume 8.9 fL (7.4-10.4) Neutrophils (%) (Auto) 66.3 % Lymphocytes (%) (Auto) 23.7 % Monocytes (%) (Auto) 7.7 % Eosinophils (%) (Auto) 1.8 % Basophils (%) (Auto) 0.3 % Neutrophils # (Auto) 7.71 K/uL (1.4-6.5) Lymphocytes # (Auto) 2.75 K/uL (1.2-3.4) Monocytes # (Auto) 0.90 K/uL (0.11-0.59) Eosinophils # (Auto) 0.21 K/uL (0-0.5) Basophils # (Auto) 0.03 K/uL (0-0.2) RDW Standard Deviation 41.0 fL (36.4-46.3) RDW Coefficient of Variation 13.3 % (11.5-14.5) Immature Granulocyte % (Auto) 0.2 % Immature Granulocyte # (Auto) 0.02 K/uL (0.00-0.02) Anion Gap 9.0 mmol/L (3-11) Est Creatinine Clear Calc Drug Dose 79.2 ml/min Estimated GFR () 64.8 Estimated GFR (Non- 55.9 BUN/Creatinine Ratio 8.9 (10-20) Calcium Level 8.3 mg/dl (8.5-10.1) Total Bilirubin 0.3 mg/dl (0.2-1) Direct Bilirubin < 0.1 mg/dl (0-0.2) Aspartate Amino Transf (AST/SGOT) 18 U/L (15-37) Alanine Aminotransferase (ALT/SGPT) 37 U/L (12-78) Alkaline Phosphatase 35 U/L (45-117) Total Protein 7.8 gm/dl (6.4-8.2) Albumin 3.2 gm/dl (3.4-5.0) Lipase 57 U/L (73-393) Urine Color DK YELLOW Urine Appearance CLOUDY (CLEAR) Urine pH 5.0 (4.5-7.5) Urine Specific [place] 1.035 (1.000-1.030) Urine Protein 3+ (NEG) Urine Glucose (UA) NEG (NEG) Urine Ketones TRACE (NEG) Urine Occult Blood 3+ (NEG) Urine Nitrite NEG (NEG) Urine Bilirubin NEG (NEG) Urine Urobilinogen NEG (NEG) Urine Leukocyte Esterase TRACE (NEG) Urine WBC (Auto) >30 /hpf (0-5) Urine RBC (Auto) >30 /hpf (0-4) Urine Hyaline Casts (Auto) 1-5 /lpf (0-5) Urine Epithelial Cells (Auto) >30 /lpf (0-5) Urine Bacteria (Auto) 1+ (NEG) Urine Test NEG (NEG) Medications Administered Medications (Trade) Dose Ordered Sig/Perry Route Start Time Stop Time Status Last Admin Dose Admin Ketorolac Tromethamine (Toradol Inj) 10 mg NOW STAT IV 03/26/18 22:51 03/26/18 22:54 DC 03/26/18 23:25 10 MG Metoclopramide HCl (Reglan Inj) 10 mg NOW STAT IV 03/26/18 22:51 03/26/18 22:54 DC 03/26/18 23:24 10 MG Diphenhydramine HCl (Benadryl Inj) 25 mg NOW STAT IV 03/26/18 22:51 03/26/18 22:54 DC 03/26/18 23:24 25 MG Sodium Chloride 1,000 ml @ 999 mls/hr Q1H1M STAT IV 03/26/18 22:51 03/26/18 23:51 DC 03/26/18 23:25 999 MLS/HR Morphine Sulfate (MoRPHine SULFATE INJ) 4 mg NOW STAT IV 03/26/18 23:47 03/26/18 23:48 DC 03/26/18 23:53 4 MG Morphine Sulfate (MoRPHine SULFATE INJ) 4 mg NOW STAT IV 03/27/18 00:52 03/27/18 00:54 DC 03/27/18 01:05 4 MG ED Course Prior records/ancillary studies reviewed. Triage Nursing notes reviewed. Additional history obtained from the family. The patient's history was concerning for right flank pain. Differential diagnosis: Etiologies such as renal colic, appendicitis, diverticulitis, mesenteric ischemia, aortic pathology, infections, inflammatory bowel disease, PUD, biliary pathology, UTI, as well as others were entertained. Physical examination findings: As above. ER treatment provided: Toradol, Reglan, Benadryl, morphine, IV fluids On reassessment the patient felt better. Diagnostic interpretation by me: The labs revealed slightly elevated creatinine. Urinalysis revealed hematuria and contamination. Mild leukocytosis. Stable H&H Imaging studies: US RENAL: COMPARISON: 03/16/18. IMPRESSION: Right kidney measures 10.9 x 6.1 x 5.5 cm. Mild hydronephrosis. Similar to the prior exam. Left kidney measures 11.0 x 4.5 x 6.0 cm. No hydronephrosis. Urinary bladder appears unremarkable. Bilateral ureteral jets were not identified. Radiologist: Sourav Craig DO Consultation: A consultation was placed with Dr. Greenberg hospitalist. The case was discussed and diagnostics were reviewed. The patient was evaluated in the ER for further treatment. Prior notes reviewed and patient had lithotripsy done on Friday by Dr. Noe. Some stone fragments were removed. CT showed a 2 mm stone from last week. It appears that the patient has ongoing right flank pain with hydronephrosis who had a stent removed today. Patient was still in moderate amount of pain. Her creatinine is trending up. She will be evaluated by medicine for possible admission. Urine seems consistent with contamination. Culture was sent. Family is agreeable to treatment plan. By the evaluation outlined above emergent etiologies such as appendicitis, diverticulitis, mesenteric ischemia, aortic pathology,inflammatory bowel disease , PUD, biliary pathology, as well as others were deemed relatively unlikely. The pt informed about the findings as listed above. All questions were answered and pleased with the treatment. Case reviewed with my attending The chart was completed utilizing [employer] Speech voice recognition software. Grammatical errors, random word insertions, pronoun errors, and incomplete sentences are an occassional consequence of this system due to software limitations, ambient noise, and hardware issues. Any formal questions or concerns about the content, text, or information contained within the body of this dictation should be directly addressed to the physician assistant professor of art for clarification. Medical Decision As above Medication Reconcilliation Current Medication List: was personally reviewed by me Blood Pressure Screening Patient's blood pressure: Normal blood pressure Impression Primary Impression: Intractable back pain Additional Impressions: Right flank pain Hydronephrosis Departure Information Dispostion Being Evaluated By Hospitalist Condition GOOD Prescriptions Lisdexamfetamine Dimesylate (VYVANSE) 60 Mg Cap 70 MG PO DAILY, #10 CAP Prov: Blaine Greenberg MD 03/27/18 Amitriptyline Hcl (Elavil) 50 Mg Tab 150 MG PO HS, #14 TAB Prov: Blaine Greenberg MD 03/27/18 Referrals Johnna Hancock M.D. (PCP) Patient Instructions [facility] Problem Qualifiers
[2018-03-27] MEDS ORDERED: IV FLUIDS COMPLETED PRN (04:45)
[2018-03-27] MEDS ORDERED: PNEUMOCOCCAL ADMINISTRATION CHARGE ONE (05:45)
[2018-03-27] MEDS ORDERED: PNEUMOCOCCAL POLYSACCHARIDES 25 MCG/0.5 ML VIAL/SYR IM. ONE (05:45)
[2018-03-27 06:45] LABS: BASO % 0.2 %; BASO ABS # 0.02 K/uL (0-0.2); EOS % 2.7 %; EOS ABS # 0.24 K/uL (0-0.5); HEMATOCRIT 34.2 % (37-47); HEMOGLOBIN 11.2 g/dL (12.0-16.0); IG# 0.01 K/uL (0.00-0.02); LYMPH % 28.9 %; LYMPH ABS # 2.54 K/uL (1.2-3.4); MEAN CELL VOLUME 84.2 fL (80-100); MEAN CORPUSCULAR HEMOGLOBIN 27.6 pg (25-34); MEAN CORPUSCULAR HGB CONC 32.7 g/dl (32-36); MEAN PLATELET VOLUME 8.6 fL (7.4-10.4); MONO % 10.6 %; MONO ABS # 0.93 K/uL (0.11-0.59); NEUT % 57.5 %; NEUT ABS # 5.05 K/uL (1.4-6.5); PLATELET COUNT 261 K/uL (130-400); RED CELL DISTRIBUTION WIDTH CV 13.3 % (11.5-14.5); RED CELL DISTRIBUTION WIDTH SD 40.2 fL (36.4-46.3); WHITE BLOOD COUNT 8.79 K/uL (4.8-10.8)
[2018-03-27 07:17] LABS: CALCIUM 7.8 mg/dl (8.5-10.1); CREATININE 0.87 mg/dl (0.60-1.20); POTASSIUM 3.9 mmol/L (3.5-5.1)
--- NOTE | 2018-03-27 07:38 | DIAGNOSTIC IMAGING REPORT ---
RENAL ULTRASOUND HISTORY: right flank pain, stent removed today, lithotripsy last friday COMPARISON: Abdomen and pelvis CT 03/08/2018. Renal ultrasound 03/16/2018. FINDINGS: Right kidney: 10.9 cm. Mild hydronephrosis, unchanged. Normal corticomedullary differentiation and cortical thickness. Left kidney: 11.0 cm. No hydronephrosis. Normal corticomedullary differentiation and cortical thickness. Bladder: Not well distended. The ureteral jets are not identified. IMPRESSION: 1. Stable mild hydronephrosis. 2. Normal left kidney. Electronically signed by: Pavel Villagomez M.D. 03/27/2018 7:37 AM Dictated Date/Time: 03/27/2018 7:35 AM
[2018-03-27 07:51] VITALS: BP 126/78; PULSE 90; TEMP 36.8; O2SAT 96
--- NOTE | 2018-03-27 07:55 | HISTORY & PHYSICAL EXAMINATION ---
DATE OF ADMISSION: 03/27/2018 CHIEF COMPLAINT: Right flank pain. HISTORY OF PRESENT ILLNESS: This is a 27-year-old female with past medical history significant for ureteral calculus, GERD, schizoaffective disorder depression type, major depression, attention deficit disorder without hyperactivity, history of C. diff, history of obesity who recently was in the ER for renal colic on and the CAT scan showed right 2 mm UVJ stone and on 03/23, she had a cystoscopy, stone extraction, stent placement, and today the stent was removed.Patient went home after the procedure today and she started to have severe pain in the right flank region, which progressed, it was getting unbearable which prompted her to come to the ER. Initially had significant hematuria which is improving now. In the ER, she received significant amount of pain medications and pain is slightly improved, but still has significant pain. Earlier, she was nauseous, but she did receive nausea medication and she is doing okay now. Denies any fever or chills. Currently resting comfortable and hemodynamically stable. Denies any headaches. Occasional blurred vision. No dizziness, no earache, no runny nose, no sore throat, no difficulty swallowing, no cough, no chest pain, no shortness of breath. No swelling in the legs. ALLERGIES: TESSALON PERLES. PAST MEDICAL HISTORY: As mentioned above. PAST SURGICAL HISTORY: Bunion correction with double osteotomy, colonoscopy, right knee ACL repair, cholecystectomy, cystoscopy. MEDICATIONS: The patient is on clonidine 0.1 mg p.o. at bedtime p.r.n., Zyprexa 5 mg p.o. p.r.n. for cesia symptoms, Zofran 4 mg p.o. 8 hours p.r.n., Valtrex 500 mg p.o. t.i.d. p.r.n. for recurrent episode, omeprazole 40 mg p.o. daily, Ventolin 2 puffs every 4 hours p.r.n., amitriptyline 150 mg p.o. at bedtime, Latuda 60 mg p.o. daily, Ortho Tri-Cyclen 1 tablet p.o. daily, Vyvanse 70 mg capsule daily, hydroxyzine 25 mg 1 or 2 tablets p.r.n. t.i.d., vitamin D 2000 units p.o. daily, bupropion XL 150 mg p.o. daily, Pristiq 100 mg p.o. daily. FAMILY HISTORY: Significant for father had skin cancer. Uncle has diabetes. SOCIAL HISTORY: Single. Never smoked. Alcohol rare. No drug use. REVIEW OF SYMPTOMS: As per HPI. Rest of review of symptoms negative. PHYSICAL EXAMINATION: GENERAL: The patient is obese, not in distress. VITAL SIGNS: Temperature 37.3, pulse 99, respiratory rate 16, blood pressure 143/85, oxygen 99% on room air. HEENT: No pallor, no icterus. Pupils equal, round, and reactive to light. NECK: No JVD, no neck masses, no carotid bruits. CARDIOVASCULAR: S1, S2 heard, regular rate and rhythm, no murmur, no gallop. RESPIRATORY SYSTEM: Normal AP diameter. No accessory muscle use. No wheezing, no crackles. ABDOMEN: Soft. Bowel sounds present. Right CVA tenderness present. Mild abdominal discomfort. No guarding. No rigidity. CENTRAL NERVOUS SYSTEM: Cranial nerves II through XII grossly intact. Nonfocal. EXTREMITIES: No edema, no erythema. LABS: WBC 11.6, hemoglobin 12.6, hematocrit 37.5, platelets 310. Sodium 127, potassium 3.6, chloride 104, bicarbonate 24, BUN 12, creatinine 1.32, serum glucose 94, calcium 8.8, total bilirubin 0.3, direct bilirubin less than 0.18, AST 18, ALT 37, alkaline phosphatase is 35. Lipase 57. Urinalysis positive for trace leukocyte esterase. Urine test negative. Retroperitoneal ultrasound unofficial report shows right hydro. ASSESSMENT AND PLAN: This is a 27-year-old female who presents with right renal colic. 1. Right renal colic Recently had cystoscopy and taken out 2 mm stone and stent placement. Stent was removed today. Presented with significant right flank pain, some hematuria. The hematuria is improving, but even after pain medications, she does have significant pain. We will observe on medical floor. IV fluids, IV pain medication p.r.n., IV antiemetics p.r.n. and consult urology for further recommendations. We will keep n.p.o. for now for any possible procedures. 2. Acute kidney injury. Creatinine 1.32, on IV fluids. Avoid nephrotoxin agents. We will monitor the labs. 3. Possible urinary tract infection. Placed on Rocephin. Follow with the cultures. 4. History of depression, schizoaffective disorder, attention deficit disorder. Continue home medications. 5. Gastroesophageal reflux disease. PPI. 6. Obesity. Needs counseling. Follow up with PCP. 7. Deep venous thrombosis prophylaxis, SCDs. 8. Disposition: Observe on medical floor. Expect to discharge home and follow with the family doctor. Level 1 full code. MTDD
[2018-03-27 08:23] VITALS: O2SAT 96
[2018-03-27] MEDS ORDERED: BuPROPion SR 150 MG TABCR PO SCH (09:00)
--- NOTE | 2018-03-27 09:00 | Hospitalist Progress Note ---
Hospitalist Progress Note Date of Service Mar 27, 2018. (Josephine Gonsalves ., PALiC) Subjective Pt evaluation today including: conversation w/ patient, conversation w/ family , physical exam, chart review, lab review, review of studies, review of inpatient medication list Pt seen and examined. Sitting up in bed. Reports this morning had 6/10 pain on pain scale to R flank and was just medicated and now pain 4/10. No further nausea reported since last night. Yesterday was having some hematuria but hasn' t noticed any since. Denies dysuria or retention. Started straining urine here in hospital, she was not straining at home. Denies fever/chills, diaphoresis, vomiting, diarrhea, constipation, LOPEZ, dizziness, CP, SOB, other abdominal pain. (Josephine Gonsalves ., KORIN-C) Medications Medications (Trade) Dose Ordered Sig/Perry Route Start Time Stop Time Status Last Admin Dose Admin Ketorolac Tromethamine (Toradol Inj) 10 mg NOW STAT IV 03/26/18 22:51 03/26/18 22:54 DC 03/26/18 23:25 10 MG Metoclopramide HCl (Reglan Inj) 10 mg NOW STAT IV 03/26/18 22:51 03/26/18 22:54 DC 03/26/18 23:24 10 MG Diphenhydramine HCl (Benadryl Inj) 25 mg NOW STAT IV 03/26/18 22:51 03/26/18 22:54 DC 03/26/18 23:24 25 MG Sodium Chloride 1,000 ml @ 999 mls/hr Q1H1M STAT IV 03/26/18 22:51 03/26/18 23:51 DC 03/26/18 23:25 999 MLS/HR Morphine Sulfate (MoRPHine SULFATE INJ) 4 mg NOW STAT IV 03/26/18 23:47 03/26/18 23:48 DC 03/26/18 23:53 4 MG Morphine Sulfate (MoRPHine SULFATE INJ) 4 mg NOW STAT IV 03/27/18 00:52 03/27/18 00:54 DC 03/27/18 01:05 4 MG Sodium Chloride 1,000 ml @ 100 mls/hr Q10H IV 03/27/18 01:45 04/26/18 01:44 03/27/18 02:43 100 MLS/HR Morphine Sulfate (MoRPHine SULFATE INJ) 3 mg Q3HWA PRN IV 03/27/18 01:45 04/10/18 01:44 03/27/18 08:09 3 MG Ceftriaxone Sodium 1 gm/ Dextrose 50 ml @ 100 mls/hr Q24H IV 03/27/18 03:00 04/06/18 02:59 03/27/18 02:43 100 MLS/HR Morphine Sulfate (MoRPHine SULFATE INJ) 2 mg NOW STAT IV 03/27/18 03:28 03/27/18 03:32 DC 03/27/18 04:05 2 MG (Josephine Gonsalves PA-C) Objective Vital Signs Date Time Temp Pulse Resp B/P (MAP) Pulse Ox O2 Delivery O2 Flow Rate FiO2 03/27/18 08:23 96 Room Air 03/27/18 07:51 36.8 90 18 126/78 (94) 96 Room Air 03/27/18 04:07 37.0 99 18 128/79 94 Room Air 03/27/18 01:54 97 16 108/69 97 03/27/18 01:04 99 16 143/85 99 Room Air 03/27/18 00:01 103 16 126/72 98 Room Air 03/26/18 22:38 37.3 103 18 139/89 99 Room Air (Josephine Gonsalves PA-C) Physical Exam General Appearance: no apparent distress, + obese Eyes: normal inspection, sclerae normal ENT: hearing grossly normal, + pertinent finding (mucous membranes moist) Neck: supple, trachea midline Respiratory/Chest: lungs clear, normal breath sounds, no respiratory distress Cardiovascular: regular rate, rhythm Abdomen: normal bowel sounds, soft, + pertinent finding (+R CVA and R flank tenderness to palpation, no other abdominal tenderness to palpation) Extremities: normal inspection, no pedal edema Neurologic/Psychiatric: alert, normal mood/affect, oriented x 3 Skin: warm/dry (Josephine Gonsalves PA-C) Laboratory Results Last 24 Hours Test 03/26/18 23:30 03/26/18 23:34 03/27/18 06:26 White Blood Count 11.62 K/uL 8.79 K/uL Red Blood Count 4.45 M/uL 4.06 M/uL Hemoglobin 12.6 g/dL 11.2 g/dL Hematocrit 37.5 % 34.2 % Mean Corpuscular Volume 84.3 fL 84.2 fL Mean Corpuscular Hemoglobin 28.3 pg 27.6 pg Mean Corpuscular Hemoglobin Concent 33.6 g/dl 32.7 g/dl Platelet Count 310 K/uL 261 K/uL Mean Platelet Volume 8.9 fL 8.6 fL Neutrophils (%) (Auto) 66.3 % 57.5 % Lymphocytes (%) (Auto) 23.7 % 28.9 % Monocytes (%) (Auto) 7.7 % 10.6 % Eosinophils (%) (Auto) 1.8 % 2.7 % Basophils (%) (Auto) 0.3 % 0.2 % Neutrophils # (Auto) 7.71 K/uL 5.05 K/uL Lymphocytes # (Auto) 2.75 K/uL 2.54 K/uL Monocytes # (Auto) 0.90 K/uL 0.93 K/uL Eosinophils # (Auto) 0.21 K/uL 0.24 K/uL Basophils # (Auto) 0.03 K/uL 0.02 K/uL RDW Standard Deviation 41.0 fL 40.2 fL RDW Coefficient of Variation 13.3 % 13.3 % Immature Granulocyte % (Auto) 0.2 % 0.1 % Immature Granulocyte # (Auto) 0.02 K/uL 0.01 K/uL Sodium Level 137 mmol/L 137 mmol/L Potassium Level 3.6 mmol/L 3.9 mmol/L Chloride Level 104 mmol/L 107 mmol/L Carbon Dioxide Level 24 mmol/L 24 mmol/L Anion Gap 9.0 mmol/L 6.0 mmol/L Blood Urea Nitrogen 12 mg/dl 10 mg/dl Creatinine 1.32 mg/dl 0.87 mg/dl Est Creatinine Clear Calc Drug Dose 79.2 ml/min 121.5 ml/min Estimated GFR () 64.8 107.3 Estimated GFR (Non- 55.9 92.6 BUN/Creatinine Ratio 8.9 11.6 Random Glucose 94 mg/dl 87 mg/dl Calcium Level 8.3 mg/dl 7.8 mg/dl Total Bilirubin 0.3 mg/dl Direct Bilirubin < 0.1 mg/dl Aspartate Amino Transf (AST/SGOT) 18 U/L Alanine Aminotransferase (ALT/SGPT) 37 U/L Alkaline Phosphatase 35 U/L Total Protein 7.8 gm/dl Albumin 3.2 gm/dl Lipase 57 U/L Urine Color DK YELLOW Urine Appearance CLOUDY Urine pH 5.0 Urine Specific [place] 1.035 Urine Protein 3+ Urine Glucose (UA) NEG Urine Ketones TRACE Urine Occult Blood 3+ Urine Nitrite NEG Urine Bilirubin NEG Urine Urobilinogen NEG Urine Leukocyte Esterase TRACE Urine WBC (Auto) >30 /hpf Urine RBC (Auto) >30 /hpf Urine Hyaline Casts (Auto) 1-5 /lpf Urine Epithelial Cells (Auto) >30 /lpf Urine Bacteria (Auto) 1+ Urine Test NEG (Josephine Gonsalves PA-C) Assessment and Plan This is a 27 y/o F with hx R 2mm ureteral calculi seen on CT scan last week who had cystoscopy, lithotripsy, R ureteral stent and stone fragment extraction on with Dr Noe. Had stent removed 03/26/18 and since had increased R flank pain. RIGHT FLANK PAIN/RIGHT HYDRONEPHROSIS Currently pt received pain medication with moderate relief of R flank pain. Denies further nausea, no vomiting. Hematuria clearing. Denies dysuria -pending urine culture -Rocephin for possible UTI, while pending urine culture -IV pain medication prn pain -urology consult appreciate recommendations - toradol prn pain, flomax. Conservative measures at this time ACUTE KIDNEY INJURY Improved today. Cr: 0.87 from 1.32 -IVF -monitor renal functions DEPRESSION/SCHIZOAFFECTIVE DISORDER/ADD -continue home medications GERD -continue PPI OBESITY -lifestyle modifications recommended -further outpatient counseling by PCP DVT PROPHYLAXIS -SCDs Admitted [facility] Disposition: anticipate discharge home today or tomorrow once pain well controlled Follows with Dr Hancock for routine care Pt was seen with Dr Montemayor. See addendum (Josephine Gonsalves PA-C) ATTENDING ADDENDUM She is seen and examined, care coordinated with Daphnie Gonsalves PA-C No complaint of abdominal pain, no nausea, no fever or chills Tolerating diet Evaluated by urology No urologic procedure needed Patient will be discharged later this afternoon if pain is well controlled (Olive Montemayor M.D.)
[2018-03-27] MEDS ORDERED: PHENAZOPYRIDINE HCL 200 MG TAB PO PRN (10:15)
[2018-03-27] MEDS ORDERED: KETOROLAC TROMETHAMINE 30 MG/ML VIAL IV PRN (10:15)
--- NOTE | 2018-03-27 10:40 | Urology Consultation ---
History General Date of Service: Mar 27, 2018. Chief Complaint: renal colic Primary Care Physician: Johnna Hancock M.D. Pt seen a urologist before?: Yes (Dr Noe) If yes, why?: Nephrolithiasis History of Present Illness 27 YO female POD #4 s/p cystoscopy, R ureteroscopy, laser lithotripsy, with stent placement. Procedure completed without complication on Friday, patient calling outpatient office since with complaints of stent irritation. Tethered stent removed by urology nursing staff in outpatient office yesterday afternoon per Dr. Noe. Patient then reported to ER last night with worsening renal colic, low grade fever, slight elevation in Cr. Renal US shows mild R hydro. Admitted for pain control. Patient reports that her pain has improved this morning. Creatinine this AM WNL. Afebrile. States that she has been urinating well, no difficulties. Hematuria is improving. Denies nausea/vomiting. Imaging Imaging: Ultrasound Images were done at: [facility] ER Laboratory Labs were reviewed and are within normal limits unless listed below. Labs are available in the chart and at [facility] Problem List Medical Problems: (1) Auditory hallucinations Status: Acute (2) C. difficile diarrhea Status: Acute (3) Hydronephrosis Status: Acute (4) Intractable back pain Status: Acute (5) Mood disorder Status: Acute (6) Renal colic on right side Status: Acute (7) Renal colic on right side Status: Acute (8) Renal colic on right side Status: Acute (9) Right flank pain Status: Acute (10) Right ureteral calculus Status: Acute (11) Suicidal ideation Status: Acute (12) Urolithiasis Status: Acute Past History depression, GERD, kidney stones, other (schizophrenia, ADD, Cdiff) Past Surgical History: cholecystectomy, ureteral stent Family History Diabetes mellitus FH: HTN (hypertension) FH: cancer FH: gallbladder disease FH: lung disease Kidney stones No significant family history Social History Hx Tobacco Use In Past Year?: No Alcohol: occasional Drug use: none Occupation status: [employer] student Allergies Coded Allergies: Benzonatate (Verified Allergy, Unknown, itching, 03/23/18) Acetaminophen (Verified Adverse Reaction, Intermediate, N/V, 03/26/18) Oxycodone (Verified Adverse Reaction, Intermediate, N/V, 03/26/18) Medications Home Medications: Home Meds and Scripts Medications Dose Route/Sig Max Daily Dose Days Date Category Vyvanse (Lisdexamfetamine Dimesylate) 60 Mg Cap 70 Mg PO DAILY 03/27/18 Rx Elavil (Amitriptyline HCl) 50 Mg Tab 150 Mg PO HS 03/27/18 Rx Zyprexa (Olanzapine) 10 Mg Tab 10 Mg PO DAILY PRN 03/26/18 Reported Pristiq (Desvenlafaxine Succinate) 100 Mg Tab 100 Mg PO DAILY 03/26/18 Reported Wellbutrin Sr (Bupropion HCl) 150 Mg Ertab 150 Mg PO QAM 03/18/18 Reported Catapres (Clonidine Hcl) 0.1 Mg Tab 0.1 Mg PO HS 03/16/18 Reported Latuda (Lurasidone Hcl) 120 Mg Tab 60 Mg PO QPM 07/18/17 Reported Tri-Estarylla (Norgestimate-Ethinyl Estradiol) 1 Tab Tab 1 Tab PO HS 07/18/17 Reported Valacyclovir HCl 500 Mg Tab 500 Mg PO TID PRN 3 07/18/17 Reported Prilosec (Omeprazole) 40 Mg Cap 40 Mg PO QPM 07/18/17 Reported Ventolin Hfa (Albuterol) 200 Puffs/[id number] Mcg Aers 2 Puffs INH Q6H PRN 07/18/17 Reported Inpatient Medications: Current Inpatient Medications Medications (Trade) Dose Ordered Sig/Perry Route Start Time Stop Time Status Last Admin Dose Admin Al Hydrox/Mg Hydrox/Simethicone (Maalox Max Susp) 15 ml Q4H PRN PO 03/27/18 01:45 04/26/18 01:44 Polyethylene (Miralax Powder Packet) 17 gm DAILY PRN PO 03/27/18 01:45 04/26/18 01:44 Ondansetron HCl (Zofran Inj) 4 mg Q6H PRN IV 03/27/18 01:45 04/26/18 01:44 Sodium Chloride 1,000 ml @ 100 mls/hr Q10H IV 03/27/18 01:45 04/26/18 01:44 03/27/18 02:43 100 MLS/HR Morphine Sulfate (MoRPHine SULFATE INJ) 3 mg Q3HWA PRN IV 03/27/18 01:45 04/10/18 01:44 03/27/18 08:09 3 MG Ceftriaxone Sodium 1 gm/ Dextrose 50 ml @ 100 mls/hr Q24H IV 03/27/18 03:00 04/06/18 02:59 03/27/18 02:43 100 MLS/HR Albuterol (Ventolin Hfa Inhaler) 2 puffs Q6H PRN INH 03/27/18 02:00 04/26/18 01:59 Bupropion HCl (Wellbutrin-Sr Tab) 150 mg QAM PO 03/27/18 09:00 04/26/18 08:59 Clonidine HCl (Catapres Tab) 0.1 mg HS PO 03/27/18 21:00 04/26/18 20:59 Olanzapine (Zyprexa Tab) 10 mg DAILY PRN PO 03/27/18 02:00 04/26/18 01:59 Miscellaneous Information (Order Awaiting Action) 1 ea QS N/A 03/27/18 08:00 04/26/18 07:59 Lurasidone HCl (Latuda Tab) 60 mg QPM PO 03/27/18 21:00 04/26/18 20:59 Miscellaneous Information (Order Awaiting Action) 1 ea QS N/A 03/27/18 08:00 04/26/18 07:59 Pantoprazole Sodium (Protonix Tab) 40 mg QPM PO 03/27/18 21:00 04/26/18 20:59 Amitriptyline HCl (Elavil Tab) 150 mg HS PO 03/27/18 21:00 04/26/18 20:59 Miscellaneous Information (Order Awaiting Action) 1 ea QS N/A 03/27/18 08:00 04/26/18 07:59 Miscellaneous (Iv Fluids Completed) 1 ea PRN PRN N/A 03/27/18 04:45 03/27/19 04:44 Ketorolac Tromethamine (Toradol Inj) 30 mg Q6H PRN IV 03/27/18 10:15 04/01/18 10:14 UNV Tamsulosin HCl (Flomax Cap) 0.4 mg HS PO 03/27/18 21:00 04/26/18 20:59 UNV Oxybutynin Chloride (Ditropan Tab) 5 mg BID PO 03/27/18 21:00 9/9/18 20:59 UNV Phenazopyridine HCl (Pyridium Tab) 200 mg TID PRN PO 03/27/18 10:15 04/26/18 10:14 UNV Review of Systems Review of Systems Constitutional: No fever, No chills Eyes: No blurred vision Neurological: No numbness/tingling Gastrointestinal: + abdominal pain, No nausea, No vomiting Cardiovascular: No chest pain Respiratory: No shortness of breath Skin: No rash Musculoskeletal: + back pain Female : + blood in urine, + kidney stones, No frequent urination, No painful urination, No urinary retention, No weak stream, No leaking urine Physical Exam Vital Signs: Vital Signs Past 12 Hours Date Time Temp Pulse Resp B/P (MAP) Pulse Ox O2 Delivery O2 Flow Rate FiO2 03/27/18 08:23 96 Room Air 03/27/18 07:51 36.8 90 18 126/78 (94) 96 Room Air 03/27/18 04:07 37.0 99 18 128/79 94 Room Air 03/27/18 01:54 97 16 108/69 97 03/27/18 01:04 99 16 143/85 99 Room Air 03/27/18 00:01 103 16 126/72 98 Room Air 03/26/18 22:38 37.3 103 18 139/89 99 Room Air Physical Exam: General Appearance: no apparent distress, + obese Eyes: bilateral eyes normal inspection ENT: hearing grossly normal Neck: no JVD Respiratory/Chest: no respiratory distress, no accessory muscle use Cardiovascular: no JVD Gastrointestinal: Abdomen: normal abdomen, diffuse Bladder: normal bladder Extremities: normal inspection Neurologic/Psychiatric: alert, normal mood/affect, oriented x 3 Skin: normal color Assessment & Plan Assessment & Plan 27 YO female POD #4 s/p cystoscopy, R ureteroscopy, laser lithotripsy, with stent placement. Renal colic Cr stable, renal US showing mild R hydro. Patient states that her pain is under control. Discussed with patient, pain should resolve over the next few days, not unexpected when stent is removed early. Continue IVF, Flomax, push PO intake. Continue pain control. Will provide a diet today. Will continue to monitor for change in patient status. Recommend patient continue Ketoralac, Ditropan, Pyridium, and Flomax at home. Patient has existing outpatient follow up appointment with Dr. Noe in one week, will keep as scheduled. Thank you for the consult, will continue to follow along with primary service.
[2018-03-27 16:21] VITALS: BP 118/68; PULSE 88; TEMP 37; O2SAT 96
[2018-03-27] MEDS ORDERED: TRAMADOL HCL 50 MG TAB PO PRN (16:30)
[2018-03-27] MEDS ORDERED: OXYB5TAB21 PO (16:51)
[2018-03-27] MEDS ORDERED: PHEN-775 PO (16:51)
[2018-03-27] MEDS ORDERED: TAMS0.4C38 PO (16:51)
--- NOTE | 2018-03-27 16:56 | Discharge Instructions ---
Discharge Instructions Date of Service Mar 28, 2018. Admission Reason for Admission: Renal Colic On Right Side Discharge Discharge Diagnosis / Problem: Right renal colic, Right hydronephrosis Discharge Goals Goal(s): Decrease discomfort, Improve function, Increase independence, Improve disease control Activity Recommendations Activity Limitations: resume your previous activity (as tolerated) . Instructions / Follow-Up Instructions / Follow-Up Follow up with [facility] - Dr oNe next week as previously scheduled Follow up with PCP office on 03/31/2018 at 10:[address] Johnna Hancock MD at [facility] Drink plenty of fluids daily. Take Flomax (tamsulosin) and Ditropan (oxybutynin) daily Take Pyridium every 8 hours as needed for urinary burning or discomfort. If using narcotic pain medication do not drive or operate machinery or drink alcohol. Current Hospital Diet Patient's current hospital diet: Regular Diet Discharge Diet Recommended Diet: Regular Diet Procedures Procedures Performed: Renal ultrasound: IMPRESSION: 1. Stable mild hydronephrosis. 2. Normal left kidney. Pending Studies Studies pending at discharge: yes List of pending studies: Urine culture Medical Emergencies . Who to Call and When: Medical Emergencies: If at any time you feel your situation is an emergency, please call 911 immediately. . Non-Emergent Contact Non-Emergency issues call your: Primary Care Provider, Urologist Call Non-Emergent contact if: temperature is above 100.5, your pain is not controlled, your pain is worsening . Past History Medical & Surgical History: (1) Right ureteral calculus (2) GERD (gastroesophageal reflux disease) (3) Reactive airway disease . "Provider Documentation" section prepared by Josephine Gonsalves. . Photographic Laboratory Supervisor Recommendations Photographic Laboratory Supervisor Recommendations: [facility]rology: Kaycee JIN/Dr Noe Recommend patient continue Ditropan, Pyridium, and Flomax at home. Keep outpatient follow up appointment with Dr. Noe in one week, as scheduled. [place] Drug Monitoring [place] Search Results: patient reviewed within database Drug Monitoring Findings: Pt rx for hydrocodone 7.5/300. #30 tabs on 03/23/18. Oxycodone 5mg. #18 tabs on 03/16/18 oxycodone 5mg. #15 tabs on 03/04/18
--- NOTE | 2018-03-27 18:42 | Discharge Summary ---
Discharge Summary Date of Service Mar 27, 2018. Discharge Summary Admission Date: Mar 27, 2018 at 01:38 Discharge Date: Mar 27, 2018 Discharge Disposition: Home Principal Diagnosis: Right renal colic, Right hydronephrosis Procedures: RENAL ULTRASOUND HISTORY: right flank pain, stent removed today, lithotripsy last friday COMPARISON: Abdomen and pelvis CT 03/08/2018. Renal ultrasound 03/16/2018. FINDINGS: Right kidney: 10.9 cm. Mild hydronephrosis, unchanged. Normal corticomedullary differentiation and cortical thickness. Left kidney: 11.0 cm. No hydronephrosis. Normal corticomedullary differentiation and cortical thickness. Bladder: Not well distended. The ureteral jets are not identified. IMPRESSION: 1. Stable mild hydronephrosis. 2. Normal left kidney. Consultations: UROLOGY: [facility] Medication Reconciliation New Medications: Oxybutynin Chloride (Ditropan Xl) 5 Mg Tab 1 TAB PO DAILY for 30 Days, #10 TAB 0 Refills Phenazopyridine Hcl (Pyridium) 200 Mg Tab 1 TAB PO TID PRN for dysuria, urinary frequency for 3 Days, #9 TAB Tamsulosin Hcl (Flomax) 0.4 Mg Cap 0.4 MG PO DAILY, #10 CAP Continued Medications: Albuterol Hfa (Ventolin Hfa) 200 Puffs/[id number] Mcg Aers 2 PUFFS INH Q6H PRN for SOB/Wheezing Amitriptyline Hcl (Elavil) 50 Mg Tab 150 MG PO HS, #14 TAB Bupropion (Wellbutrin Sr) 150 Mg Ertab 150 MG PO QAM, TAB Clonidine Hcl (Catapres) 0.1 Mg Tab 0.1 MG PO HS, TAB Desvenlafaxine Succinate Er (Pristiq) 100 Mg Tab 100 MG PO DAILY, TAB Lisdexamfetamine Dimesylate (Vyvanse) 60 Mg Cap 70 MG PO DAILY, #10 CAP Lurasidone Hcl (Latuda) 120 Mg Tab 60 MG PO QPM Norgestimate-Ethinyl Estradiol (Tri-Estarylla) 1 Tab Tab 1 TAB PO HS Olanzapine (Zyprexa) 10 Mg Tab 10 MG PO DAILY PRN for MANIC EPISODES, TAB Omeprazole (Prilosec) 40 Mg Cap 40 MG PO QPM, CAP Valacyclovir HCl (Valacyclovir HCl) 500 Mg Tab 500 MG PO TID PRN for Recurrent Episode for 3 Days Admission Information HPI (per Admitting provider): DATE OF ADMISSION: 03/27/2018 CHIEF COMPLAINT: Right flank pain. HISTORY OF PRESENT ILLNESS: This is a 27-year-old female with past medical history significant for ureteral calculus, GERD, schizoaffective disorder depression type, major depression, attention deficit disorder without hyperactivity, history of C. diff, history of obesity who recently was in the ER for renal colic on and the CAT scan showed right 2 mm UVJ stone and on 03/23, she had a cystoscopy, stone extraction, stent placement, and today the stent was removed.Patient went home after the procedure today and she started to have severe pain in the right flank region, which progressed, it was getting unbearable which prompted her to come to the ER. Initially had significant hematuria which is improving now. In the ER, she received significant amount of pain medications and pain is slightly improved, but still has significant pain. Earlier, she was nauseous, but she did receive nausea medication and she is doing okay now. Denies any fever or chills. Currently resting comfortable and hemodynamically stable. Denies any headaches. Occasional blurred vision. No dizziness, no earache, no runny nose, no sore throat, no difficulty swallowing, no cough, no chest pain, no shortness of breath. No swelling in the legs. ALLERGIES: TESSALON PERLES. PAST MEDICAL HISTORY: As mentioned above. PAST SURGICAL HISTORY: Bunion correction with double osteotomy, colonoscopy, right knee ACL repair, cholecystectomy, cystoscopy. MEDICATIONS: The patient is on clonidine 0.1 mg p.o. at bedtime p.r.n., Zyprexa 5 mg p.o. p.r.n. for cesia symptoms, Zofran 4 mg p.o. 8 hours p.r.n., Valtrex 500 mg p.o. t.i.d. p.r.n. for recurrent episode, omeprazole 40 mg p.o. daily, Ventolin 2 puffs every 4 hours p.r.n., amitriptyline 150 mg p.o. at bedtime, Latuda 60 mg p.o. daily, Ortho Tri-Cyclen 1 tablet p.o. daily, Vyvanse 70 mg capsule daily, hydroxyzine 25 mg 1 or 2 tablets p.r.n. t.i.d., vitamin D 2000 units p.o. daily, bupropion XL 150 mg p.o. daily, Pristiq 100 mg p.o. daily. FAMILY HISTORY: Significant for father had skin cancer. Uncle has diabetes. SOCIAL HISTORY: Single. Never smoked. Alcohol rare. No drug use. REVIEW OF SYMPTOMS: As per HPI. Rest of review of symptoms negative. Physical Exam (per Admitting): PHYSICAL EXAMINATION: GENERAL: The patient is obese, not in distress. VITAL SIGNS: Temperature 37.3, pulse 99, respiratory rate 16, blood pressure 143/85, oxygen 99% on room air. HEENT: No pallor, no icterus. Pupils equal, round, and reactive to light. NECK: No JVD, no neck masses, no carotid bruits. CARDIOVASCULAR: S1, S2 heard, regular rate and rhythm, no murmur, no gallop. RESPIRATORY SYSTEM: Normal AP diameter. No accessory muscle use. No wheezing, no crackles. ABDOMEN: Soft. Bowel sounds present. Right CVA tenderness present. Mild abdominal discomfort. No guarding. No rigidity. CENTRAL NERVOUS SYSTEM: Cranial nerves II through XII grossly intact. Nonfocal. EXTREMITIES: No edema, no erythema. Hospital Course Right flank pain has completely resolved Tolerating diet No fever chills Wants to be discharged home today Physical Exam General Appearance: no apparent distress, + obese Eyes: normal inspection, sclerae normal ENT: hearing grossly normal, + pertinent finding (mucous membranes moist) Neck: supple, trachea midline Respiratory/Chest: lungs clear, normal breath sounds, no respiratory distress Cardiovascular: regular rate, rhythm Abdomen: normal bowel sounds, soft, no CVA tenderness Extremities: normal inspection, no pedal edema Neurologic/Psychiatric: alert, normal mood/affect, oriented x 3 Skin: warm/dry RIGHT FLANK PAIN: Status post recent right-sided stent Right flank pain has resolved. Denies further nausea, no vomiting. Hematuria clearing. Denies dysuria -urology consult appreciate recommendations -pain control Flomax. No urologic procedure needed Stable to be discharged home ACUTE KIDNEY INJURY Resolved Improved today. Cr: 0.87 from 1.32 with IV fluids DEPRESSION/SCHIZOAFFECTIVE DISORDER/ADD -continue home medications GERD -continue PPI OBESITY -lifestyle modifications recommended -further outpatient counseling by PCP DVT PROPHYLAXIS -SCDs Disposition: Stable to be discharged home today Total time spent on discharge = This includes examination of the patient, discharge planning, medication reconciliation, and communication with other providers. Discharge Instructions Discharge Instructions Date of Service Mar 28, 2018. Admission Reason for Admission: Renal Colic On Right Side Discharge Discharge Diagnosis / Problem: Right renal colic, Right hydronephrosis Discharge Goals Goal(s): Decrease discomfort, Improve function, Increase independence, Improve disease control Activity Recommendations Activity Limitations: resume your previous activity (as tolerated) . Instructions / Follow-Up Instructions / Follow-Up Follow up with [facility] - Dr Noe next week as previously scheduled Follow up with PCP office on 03/31/2018 at 10:[address] Johnna Hancock MD at [facility] Drink plenty of fluids daily. Take Flomax (tamsulosin) and Ditropan (oxybutynin) daily Take Pyridium every 8 hours as needed for urinary burning or discomfort. If using narcotic pain medication do not drive or operate machinery or drink alcohol. Current Hospital Diet Patient's current hospital diet: Regular Diet Discharge Diet Recommended Diet: Regular Diet Procedures Procedures Performed: Renal ultrasound: IMPRESSION: 1. Stable mild hydronephrosis. 2. Normal left kidney. Pending Studies Studies pending at discharge: yes List of pending studies: Urine culture Medical Emergencies . Who to Call and When: Medical Emergencies: If at any time you feel your situation is an emergency, please call 911 immediately. . Non-Emergent Contact Non-Emergency issues call your: Primary Care Provider, Urologist Call Non-Emergent contact if: temperature is above 100.5, your pain is not controlled, your pain is worsening . Past History Medical & Surgical History: (1) Right ureteral calculus (2) GERD (gastroesophageal reflux disease) (3) Reactive airway disease . "Provider Documentation" section prepared by Josephine Gonsalves. . Machine Hoop Maker Helper Recommendations Machine Hoop Maker Helper Recommendations: [facility]: Kaycee [facility]IN/Dr Noe Recommend patient continue Ditropan, Pyridium, and Flomax at home. Keep outpatient follow up appointment with Dr. Noe in one week, as scheduled. [place] Drug [place] Search Results: patient reviewed within database Drug Monitoring Findings: Pt rx for hydrocodone 7.5/300. #30 tabs on 03/23/18. Oxycodone 5mg. #18 tabs on 03/16/18 oxycodone 5mg. #15 tabs on 03/04/18
[2018-03-27 18:52] VITALS: BP 118/68; PULSE 88; TEMP 37; O2SAT 96
[2018-03-27] MEDS ORDERED: CLONIDINE HCL 0.1 MG TAB PO SCH ×2 (21:00)
[2018-03-27] MEDS ORDERED: OXYBUTYNIN CHLORIDE 5 MG TAB PO SCH (21:00)
[2018-03-27] MEDS ORDERED: PANTOprazole SOD 40 MG TAB PO SCH (21:00)
[2018-03-27] MEDS ORDERED: LURASIDONE HCL 40 MG TAB PO SCH (21:00)
[2018-03-27] MEDS ORDERED: TAMSULOSIN HCL 0.4 MG CAP PO SCH (21:00)
[2018-03-27] MEDS ORDERED: AMITRIPTYLINE HCL 50 MG TAB PO SCH (21:00)
== END 2018-03-27 19:45 | disposition home or self-care (01) ==
LOC: C.EDB 22:34 → C.MSN 03-27 01:38 → ENRESERV 03-27 01:45
PROVIDERS: ADMIT Hospitalist; ATTEND Hospitalist
DX: N23 Unspecified renal colic (principal); N13.30 Unspecified hydronephrosis; Z79.899 Other long term (current) drug therapy; F20.9 Schizophrenia, unspecified; F32.9 Major depressive disorder, single episode, unspecified; F90.9 Attention-deficit hyperactivity disorder, unspecified type; K21.9 Gastro-esophageal reflux disease without esophagitis; E66.9 Obesity, unspecified; Z88.8 Allergy status to other drugs, medicaments and biological substances; Z68.42 Body mass index [BMI] 45.0-49.9, adult

== ENCOUNTER → 2018-04-02 | Outpatient (CLI) | payer OTHER ==
[~2018-04-02] MED LIST changes: -BUSP15TA70 PO; -CIPR-255 PO; +DESV100T PO; -DESV100T8 PO; +LISD60CA PO; -LISD70CA PO; +OLAN10TA11 PO; -ONDA4TAB46 SL; +OXYB5TAB21 PO; -OXYC-90 PO; -OXYC7.5T65 PO; -PHEN-775 PO
--- NOTE | 2018-04-02 18:06 | DIAGNOSTIC IMAGING REPORT ---
[facility] CLINICAL HISTORY: Nephrolithiasis. COMPARISON STUDY: CT of the abdomen and pelvis March 08, 2018, KUB March 16, 2018 and renal ultrasound March 27, 2018. FINDINGS: The bowel gas pattern is normal. There are cholecystectomy clips. No urinary calculi are identified. IMPRESSION: No urinary calculi identified. Electronically signed by: Nj Weiss M.D. 04/02/2018 6:04 PM Dictated Date/Time: 04/02/2018 5:46 PM
== END | disposition home or self-care (01) ==
LOC: C.RAD 17:20
PROVIDERS: ATTEND Urology
DX: N20.0 Calculus of kidney (principal)

== ENCOUNTER → 2018-04-03 | Outpatient (CLI) | payer OTHER | END | disposition home or self-care (01) | LOC: C.LABSPEC 16:22 | PROVIDERS: ATTEND Urology | DX: N20.1 Calculus of ureter (principal) ==